=== PATIENT | female | born 1990 | race Caucasian/White ===

== ENCOUNTER 2022-04-01 20:39 | Emergency (ER) | payer OTHER, SELFPAY ==
[2022-04-01 20:54] VITALS: BP 119/69; BP 121/78; PULSE 70; PULSE 78; RESP 18; TEMP 36.7; O2SAT 98; BMI 22.3
--- NOTE | 2022-04-01 21:09 | ED.BACK ---
HPI - Back Pain/Injury General Chief Complaint: Back Injury/Pain Stated Complaint: back pain, short of breath Time Seen by Provider: 04/01/22 20:58 History of Present Illness HPI Narrative: This 31-year-old female comes in reporting an episode of back discomfort the last about an hour. She states that she felt back pain in the lower back and it seemed to radiate bilaterally from there. She did not have any injury event or strenuous activity. This pain lasted about an hour and now has completely resolved. She arrived at the emergency department stating to her significant other that she is feeling much better. He decided to come in any way to have vital signs checked and see if there was any insight as to what happened to her. Related Data Home Medications Medication Instructions Recorded Confirmed No Known Home Medications 04/01/22 04/01/22 Allergies Allergy/AdvReac Type Severity Reaction Status Date / Time No Known Drug Allergies Allergy Verified 04/01/22 20:57 Review of Systems Status of ROS: Reports: 10 or more systems reviewed and unremarkable except as noted in History and below Narrative: Constitutional: No fevers, no weight gain or loss. Eyes: No discharge. No vision changes. HENT: No congestion, no sore throat, no ear pain. Cardiovascular: No chest pain, no palpitations. Respiratory: No shortness of breath, no wheezes, no cough. Gastrointestinal: No abdominal pain, no vomiting, no diarrhea. Genitourinary: No dysuria, no hematuria. Musculoskeletal: Normal range of motion. Episode of back pain as described above. Skin: No rashes, no pruritis. Neurological: No dizziness, weakness, sensory change, speech change. Endo/Heme/Allergies: No bruising or bleeding. No polydipsia. Pysch: no suicidality, no anxiety, no insomnia. All other systems reviewed and are negative. Exam Narrative: Exam Narrative: Constitutional: Well-developed, well-nourished, no acute distress. HEENT: Normocephalic, atraumatic. Neck: Normal range of motion. Nontender. Supple. Heart: Regular. No murmurs. Normal rate. Intact distal pulses. Lungs: Clear to auscultation. No chest discomfort. No wheezes, rhonchi, or rales. Abdomen: Normal bowel sounds. Nontender. No rebound tenderness. No flank pain when percussing over the kidneys. Genitalia: Deferred. Back: No midline tenderness. Normal range of motion. Extremities: Normal range of motion. No injury. Skin: Intact. No rash. Warm. No erythema or pallor. Neurologic: No altered sensation. No weakness. Alert and oriented. Psychiatric: No suicidality. No anxiety or depression. No insomnia. Nursing notes and vitals signs are reviewed. Const: Vital Signs, click to edit/add: Vital Signs - 24 hr 04/01/22 20:54 Temperature 98.0 F Pulse Rate [Right Pulse Oximeter] 78 Respiratory Rate 18 Blood Pressure [Ri ght Upper Arm] 119/69 Pulse Oximetry 98 Oxygen Delivery Me thod Room Air Course Vital Signs Vital signs: Initial Vital Signs Temperature 98.0 F 04/01/22 20:54 Temperature Source Temporal Artery Scan 04/01/22 20:54 Pulse Rate 78 04/01/22 20:54 Respiratory Rate 18 04/01/22 20:54 Blood Pressure 119/69 04/01/22 20:54 Blood Pressure Mean 85 04/01/22 20:54 Blood Pressure Position Sitting 04/01/22 20:54 Pulse Oximetry 98 04/01/22 20:54 Oxygen Delivery Method 04/01/22 20:54 Vital Signs Temperature 98.0 F 04/01/22 20:54 Pulse Rate 78 04/01/22 20:54 Respiratory Rate 18 04/01/22 20:54 Blood Pressure 119/69 04/01/22 20:54 Pulse Oximetry 98 04/01/22 20:54 Oxygen Delivery Method 04/01/22 20:54 Temperature 98.0 F 04/01/22 20:54 Pulse Rate 78 04/01/22 20:54 Respiratory Rate 18 04/01/22 20:54 Blood Pressure 119/69 04/01/22 20:54 Pulse Oximetry 98 04/01/22 20:54 Oxygen Delivery Method 04/01/22 20:54 MDM - Back Pain/Injury MDM Narrative Medical decision making narrative: This 31-year-old comes in reporting an episode of back pain that was not triggered by any strenuous activity or injury event. Her symptoms have now completely resolved. She arrives with normal vital signs and a normal exam. I did states some possible causes of pain like this but reassured her that the transient nature of it along with her normal exam currently does not trigger any significant concern. I advised her to use [id number] medicines as needed and directed and return if recurrent or worsening symptoms happen. Discharge Plan Discharge Clinical Impression: Lumbago Patient Disposition: Home, Self-Care Condition: Improved Additional Instructions: Take [id number] medications as needed and indicated. Follow up with MD or return if worsening. Prescriptions: No Action No Known Home Medications Stand Alone Forms: [facility] Info Instructions
[2022-04-01 21:30] VITALS: BP 121/78; PULSE 70; RESP 18; TEMP 36.7
== END 2022-04-01 21:37 | disposition home or self-care (01) ==
LOC: ED 21:38
PROVIDERS: Emergency Provider Emergency Medicine Emergency Medical Services
DX: M54.50 Low back pain, unspecified (principal)
CPT/HCPCS: 99282; 99283; 99284

== ENCOUNTER 2022-04-02 01:24 | Emergency (ER) | payer OTHER, SELFPAY ==
--- NOTE | 2022-04-02 01:31 | ED_ITS ---
HPI - General Adult General Time Seen by Provider: 01:32 Date Seen: 04/02/22 Chief complaint: Flank Pain Stated complaint: back pain Time Seen by Provider: 04/02/22 01:26 Source: patient, RN notes reviewed and old records reviewed Mode of arrival: ambulatory Limitations: no limitations History of Present Illness HPI narrative: is a very pleasant 31-year-old female with history of to her 4th child 2 months ago who comes to the emergency room with back pain. Patient notes the onset of low back pain that wraps around to her abdomen for the 2nd time this evening. She was actually here earlier and described 10/ sudden onset of pain that had dissipated by the time she had arrived here. Reassurance was given and she was discharged home. Unfortunately, she was awoken from sleep from the return of the pain. She describes the pain is in her low back but radiating superiorly. This wraps around to the lower front of her abdomen. It is not associated with nausea, vomiting, recent fever or change in stools. Patient states in the past she has had some blood when she wipes if she is constipated but she is not currently constipated and has not had that happen recently. She denies any recent illness. She denies any trauma. She does describe a family outing today in which she and her took the 4 kids to an indoor part. She notes that she was going down the slide bending over quite a bit but does not recall any injury. She denies that the pain radiates down her legs. She has no loss of bowel or bladder control. She has not noticed any blood in her urine nor does it hurt to urinate. Patient has not been sexually active since having her baby 2 months ago. She has not had a period since the of her child. Related Data Home Medications Medication Instructions Recorded Confirmed No Known Home Medications 04/01/22 04/01/22 Allergies Allergy/AdvReac Type Severity Reaction Status Date / Time No Known Drug Allergies Allergy Verified 04/02/22 02:00 Review of Systems Status of ROS: Reports: 10 or more systems reviewed and unremarkable except as noted in History and below Const: Denies: fever or chills ENMT: Denies: throat pain or difficulty swallowing Cardio: Denies: chest pain, swelling of feet/ankles, lightheadedness or shortness of breath with exertion Resp: Denies: shortness of breath or cough GI: Reports: abdominal pain and blood in stool (Occasionally with constipation); Denies: nausea, vomiting, heartburn, diarrhea or difficulty swallowing : Denies: painful urination, urinary frequency, urinary urgency, urinary incontinence or blood in urine Musculo: Reports: back pain; Denies: extremity pain Integ/Breast: Denies: rash Neuro: Denies: headache, numbness in extremities or weakness in extremities PFSH [facility] Medical History Asthma Surgical History H/O tubal ligation Social History Smoking Status: Never smoker Do you use any of these nicotine containing products: None Second hand tobacco smoke exposure: No How often do you have a drink containing alcohol: never How often do you have six or more drinks on one occasion: Never AUDIT-C Alcohol total score: 0 Non-prescribed substance use: denies use Exam Narrative: Exam Narrative: Alert and oriented. Seems somewhat fearful. present loving and supportive. Eyes are clear. Mentating normally. Head is atraumatic. Heart with a regular rate and rhythm Lungs are clear to auscultation. Abdomen is soft and nontender. Perhaps slight uncomfortable feeling over the right upper quadrant but I cannot say this with certain the was a positive Gregorio sign. No pulsating mass. No CVA tenderness with percussion. No pain with palpation down the thoracic or lumbar spine. Straight leg raise internal external rotation of the hips yield no tenderness. Lower extremities without any evidence of edema. No peritoneal signs. Const: Vital Signs, click to edit/add: Vital Signs - 24 hr 04/02/22 01:58 04/02/22 04:04 Temperature 97.9 F Pulse Rate [Right Pulse Oximeter] 79 81 Respiratory Rate 18 18 Blood Pressure [Ri ght Upper Arm] 115/78 118/81 Pulse Oximetry 99 99 Oxygen Delivery Me thod Room Air Room Air Documenting provider has reviewed patient's vital signs: yes Course Course Hospital Course: Differential diagnosis includes but is not limited to life-threatening illnesses including aortic pathology, volvulus, internal hernia incarceration, ureteral colic, muscular spasm. At this time will place an IV give 1 L of normal saline and check laboratory values to include a CBC, comprehensive panel, CRP, urinalysis, hCG, amylase, lipase. Based on urinalysis will likely proceed with CT of the abdomen and pelvis. Patient notes that her pain has decreased to a 3/10 at this time is starting to dissipate. Will hold off on any pain medications. Reevaluation(s) Reevaluation #1: Noted on CT was a very full bladder. We did a bedside bladder ultrasound that showed 300 mils. Patient was able to urinate 300 mils without difficulty. Urine was strain but no evidence of stone. Patient informed that she did have stones in the kidney but none noted within the ureteral system. Of note however is elevated LFTs and therefore will do a right upper quadrant ultrasound. Patient remains pain-free Reevaluation #2: Pain return for this patient and thus she is given Toradol 15 mg IV. Vital Signs Vital signs: Initial Vital Signs Temperature 97.9 F 04/02/22 01:58 Temperature Source Temporal Artery Scan 04/02/22 01:58 Pulse Rate 79 04/02/22 01:58 Respiratory Rate 18 04/02/22 01:58 Blood Pressure 115/78 04/02/22 01:58 Blood Pressure Mean 90 04/02/22 01:58 Blood Pressure Position Sitting 04/02/22 01:58 Pulse Oximetry 99 04/02/22 01:58 Oxygen Delivery Method 04/02/22 01:58 Vital Signs Temperature 97.9 F 04/02/22 01:58 Pulse Rate 79 04/02/22 01:58 Respiratory Rate 18 04/02/22 01:58 Blood Pressure 115/78 04/02/22 01:58 Pulse Oximetry 99 04/02/22 01:58 Oxygen Delivery Method 04/02/22 01:58 Temperature 97.9 F 04/02/22 01:58 Pulse Rate 81 04/02/22 04:04 Respiratory Rate 18 04/02/22 04:04 Blood Pressure 118/81 04/02/22 04:04 Pulse Oximetry 99 04/02/22 04:04 Oxygen Delivery Method 04/02/22 04:04 Medical Decision Making MDM Narrative Medical decision making narrative: 1. Abdominal pain-patient has elevated liver function tests but normal bilirubin. Mild right upper quadrant pain with palpation but no obvious Gregorio sign. However, ultrasound shows multiple small stones. No evidence of pericholecystic fluid. At this time patient has been pain-free since given Toradol in the emergency room. I had the pleasure of speaking with our surgical elastic knitter Dr. Graciela Jimenez. At this time patient will be discharged home and will follow-up in clinic tomorrow FridayApril 03. At that time will have LFTs rechecked. Fortunately no evidence of leukocytosis and CRP is within normal limits. Will ask patient to use ibuprofen as needed for discomfort. She may add [place] sparingly as needed for pain. She is breast-feeding and may continue to do so. 2. Urinary retention-patient states that she was unable to urinate. However, on CT it was noted that her bladder was somewhat distended. We did do a bladder ultrasound which showed 300 mils. Patient was able to then urinate that very same amount. 3. Nephrolithiasis-patient did have kidney stones in the right kidney but no evidence of ureteral stones hydronephrosis. 4. Constipation-patient did have increased stool burden. Will have her use MiraLax twice daily especially since she will be on a narcotic for pain control. 2. Disposition -home with her . She is instructed to return to the emergency room for worsening symptoms especially fever, vomiting, increasing abdominal pain. She will stick to a low flat diet. Medical Records Medical records reviewed: Yes I reviewed the patient's medical records Lab Data Lab results reviewed: Yes I reviewed the patient's lab results Labs: Lab Results 04/02/22 04/02/22 04/02/22 Range/Units 01:50 01:50 01:50 WBC 7.90 (4.50-11.00) K/uL RBC 4.93 (4.00-5.20) m/uL Hgb 13.3 (12.0-16.0) gm/dL Hct 41.1 (33.0-51.0) % MCV 83 (80-100) fL MCH 27 (26-34) pg MCHC 32 (32-36) gm/dL RDW Coeff of [place] 14.8 (11.5-15.5) % Plt Count 279 (140-440) K/uL Neut % (Auto) 65.2 (42.0-72.0) % Lymph % (Auto) 28.2 (20-44) % [place] % (Auto) 5.2 (0.0-11.0) % Eos % (Auto) 0.6 (0.0-7.0) % Baso % (Auto) 0.3 (0.0-3.0) % Neut # (Auto) 5.15 (1.7-7.0) K/uL Lymph # (Auto) 2.23 (0.90-2.90) K/uL [place] # (Auto) 0.40 (0.00-0.90) K/UL Eos # (Auto) 0.05 (0.00-0.50) K/uL Baso # (Auto) 0.02 (0.00-0.30) K/uL Abs Immat Gran (auto) 0.04 (0.00-0.30) K/uL Imm/Tot Granulo (auto) 0.5 % Sodium 140 (135-149) mmol/L Potassium 3.8 (3.6-5.1) mmol/L Chloride 103 (96-114) mmol/L Carbon Dioxide 27 (20-32) mmol/L BUN 24 (5-24) mg/dL Creatinine 0.8 (0.5-1.5) mg/dL Estimated Creat Clear 111.45 Estimated GFR 102 ml/min Glucose 113 (60-115) mg/dL Calcium 9.3 (8.4-10.6) mg/dL Total Bilirubin 1.0 (0.1-1.5) mg/dL AST 712 H (12-35) U/L ALT 343 H (4-35) U/L Alkaline Phosphatase 126 (40-150) U/L C-Reactive Protein < 0.5 L (0.5-1.0) mg/dL Total Protein 7.8 (6.0-8.3) g/dL Albumin 5.0 (3.3-5.0) g/dL Amylase 85 (18-89) U/L Lipase 220 (23-300) U/L HCG, Qual Negative (Negative) Urine Color (Yellow) Urine Appearance (Clear) Urine pH (5.0-8.5) Ur Specific [place] (1.000-1.030) Urine Protein (Negative) Urine Glucose (UA) (Negative) Urine Ketones (Negative) Urine Blood (Negative) Urine Nitrite (Negative) Urine Bilirubin (Negative) Urine Urobilinogen (0.2-1.0) Ur Leukocyte Esterase (Negative) Urine RBC (0-2) Urine WBC (0-5) Ur Squamous Epith Cells (None-Few) Urine Bacteria (None) Urine Mucus (None) Ethyl Alcohol < 0.01 L (0.01-0.03) % SARS-CoV-2 (PCR) (Negative) 04/02/22 04/02/22 Range/Units 03:20 05:37 WBC (4.50-11.00) K/uL RBC (4.00-5.20) m/uL Hgb (12.0-16.0) gm/dL Hct (33.0-51.0) % MCV (80-100) fL MCH (26-34) pg MCHC (32-36) gm/dL RDW Coeff of Layo (11.5-15.5) % Plt Count (140-440) K/uL Neut % (Auto) (42.0-72.0) % Lymph % (Auto) (20-44) % [place] % (Auto) (0.0-11.0) % Eos % (Auto) (0.0-7.0) % Baso % (Auto) (0.0-3.0) % Neut # (Auto) (1.7-7.0) K/uL Lymph # (Auto) (0.90-2.90) K/uL [place] # (Auto) (0.00-0.90) K/UL Eos # (Auto) (0.00-0.50) K/uL Baso # (Auto) (0.00-0.30) K/uL Abs Immat Gran (auto) (0.00-0.30) K/uL Imm/Tot Granulo (auto) % Sodium (135-149) mmol/L Potassium (3.6-5.1) mmol/L Chloride (96-114) mmol/L Carbon Dioxide (20-32) mmol/L BUN (5-24) mg/dL Creatinine (0.5-1.5) mg/dL Estimated Creat Clear Estimated GFR ml/min Glucose (60-115) mg/dL Calcium (8.4-10.6) mg/dL Total Bilirubin (0.1-1.5) mg/dL AST (12-35) U/L ALT (4-35) U/L Alkaline Phosphatase (40-150) U/L C-Reactive Protein (0.5-1.0) mg/dL Total Protein (6.0-8.3) g/dL Albumin (3.3-5.0) g/dL Amylase (18-89) U/L Lipase (23-300) U/L HCG, Qual (Negative) Urine Color Yellow (Yellow) Urine Appearance Clear (Clear) Urine pH 7.0 (5.0-8.5) Ur Specific [place] 1.015 (1.000-1.030) Urine Protein Negative (Negative) Urine Glucose (UA) Negative (Negative) Urine Ketones Negative (Negative) Urine Blood Negative (Negative) Urine Nitrite Negative (Negative) Urine Bilirubin Negative (Negative) Urine Urobilinogen 0.2 (0.2-1.0) Ur Leukocyte Esterase Trace A (Negative) Urine RBC 0-2 (0-2) Urine WBC 2-5 (0-5) Ur Squamous Epith Cells Moderate A (None-Few) Urine Bacteria Few A (None) Urine Mucus Moderate A (None) Ethyl Alcohol (0.01-0.03) % SARS-CoV-2 (PCR) Negative SARS-CoV-2 (Negative) Imaging Data CT scan - abdomen: Attestation: I have reviewed the pertinent imaging results. My impression: Full bladder. Large amount of stool. Nephrolithiasis. I do not see obstructing stone in the ureters. Radiologist's impression: Lower chest: A 3 mm nodule seen in the left lateral costophrenic sulcus. Liver: Unremarkable. Spleen: Unremarkable. Pancreas: Unremarkable. Gallbladder: Unremarkable. Kidney: There is a cluster of several stones present in the lower pole of the right kidney. No ureteral calculi or obstruction is seen. Adrenal: Unremarkable. Bowel: Moderate amount of stool is present throughout the colon which may be due to chronic constipation. The appendix is normal in appearance and size. It is best appreciated on coronal images. Vascular: Unremarkable. Lymph: Unremarkable. Peritoneum: Unremarkable. No pneumoperitoneum is seen. No significant ascites is noted. Pelvis: Unremarkable. Soft tissue: Unremarkable. Bone: Bilateral chronic pars defects of L5 noted with mild anterolisthesis of L5-S1 noted. IMPRESSION: 1. No CT correlate for the patient`s symptoms seen. US - abdomen: Attestation: I have reviewed the pertinent imaging results. Radiologist's impression: Liver: The liver parenchyma is normal in echotexture. Gallbladder: Numerous small echogenic gallstones are seen within the gallbladder. The gallbladder wall is normal in appearance. No pericholecystic fluid is present. No sonographic Gregorio?s sign is present. Common bile duct: 6 mm. No intrahepatic biliary ductal dilatation seen. Pancreas: The visualized portions of the pancreatic head and body are normal in appearance. Right Kidney: 10.5 cm. Small echogenic foci are noted in the lower pole of the right kidney, consistent with stones seen on recent CT. No hydronephrosis or ureterectasis is seen. Vascular: The visualized abdominal aorta and IVC are unremarkable. IMPRESSION: 1. Numerous small echogenic gallstones are seen within the gallbladder. Discharge Plan Discharge Clinical Impression: Abdominal pain, Cholelithiasis Patient Disposition: Home, Self-Care Condition: Improved Additional Instructions: Low-fat diet. Ibuprofen may be used for pain. For pain not relieved by ibuprofen [place] also known as Vicodin or hydrocodone/Tylenol may be used sparingly. [place] through [employer] I would suggest the use of MiraLax 1 cap twice a day to help improve through put of stool. Expect a phone call from the clinic to set you up with an appointment with our surgeon Dr. Graciela Jimenez for tomorrow, FridayApril 03. At that time will recheck your liver function tests. If you do not hear from them, call them at [phone] Return to the emergency room for onset of fever, worsening symptoms and as needed. Prescriptions: No Action No Known Home Medications Follow Up/Referrals: Provider,Not a Local [Primary Care Provider] - Stand Alone Forms: [employer] Info Instructions
[2022-04-02] MEDS: 0.9 % SODIUM CHLORIDE 1000 ml 1,000 ML IV (01:50)
[2022-04-02 01:58] VITALS: BP 115/78; PULSE 79; RESP 18; TEMP 36.6; O2SAT 99; BMI 21.5
[2022-04-02 02:01] LABS: Basophils Absolute Auto 0.02 K/uL (0.00-0.30); Basophils Percent Auto 0.3 % (0.0-3.0); Eosinophils Absolute Auto 0.05 K/uL (0.00-0.50); Eosinophils Percent Auto 0.6 % (0.0-7.0); Hematocrit 41.1 % (33.0-51.0); Hemoglobin* 13.3 gm/dL (12.0-16.0); Immature Granulocytes Abs Auto 0.04 K/uL (0.00-0.30); Immature Granulocytes Pct Auto 0.5 %; Lymphocytes Absolute Auto 2.23 K/uL (0.90-2.90); Lymphocytes Percent Auto 28.2 % (20-44); Mean Corpuscular HGB Conc 32 gm/dL (32-36); Mean Corpuscular Hemoglobin 27 pg (26-34); Mean Corpuscular Volume 83 fL (80-100); Monocytes Percent Auto 5.2 % (0.0-11.0); Neutrophils Absolute Auto 5.15 K/uL (1.7-7.0); Neutrophils Percent Auto 65.2 % (42.0-72.0); Platelet Count* 279 K/uL (140-440); RDW Coefficient of Variation % 14.8 % (11.5-15.5); Red Blood Count 4.93 m/uL (4.00-5.20)
[2022-04-02 02:07] LABS: Slide Review Reflex No
[2022-04-02 02:14] LABS: Chloride* 103 mmol/L (96-114); HCG Qualitative Serum* Negative (Negative)
[2022-04-02 02:15] LABS: Potassium* 3.8 mmol/L (3.6-5.1); Sodium* 140 mmol/L (135-149)
[2022-04-02 02:17] LABS: Amylase* 85 U/L (18-89); Creatinine* 0.8 mg/dL (0.5-1.5); Est. Creatinine Clearance* 111.45; Estimated Glomerular Filt Rate 102 ml/min
[2022-04-02 02:18] LABS: Alanine Aminotransferase* 343 U/L (4-35); Alkaline Phosphatase* 126 U/L (40-150); Aspartate Amino Transferase* 712 U/L (12-35); Blood Urea Nitrogen* 24 mg/dL (5-24); Calcium* 9.3 mg/dL (8.4-10.6); Carbon Dioxide* 27 mmol/L (20-32); Glucose* 113 mg/dL (60-115); Lipase* 220 U/L (23-300); Total Protein* 7.8 g/dL (6.0-8.3)
[2022-04-02 02:23] LABS: C Reactive Protein* < 0.5 mg/dL (0.5-1.0)
--- NOTE | 2022-04-02 02:24 | CRLHL7_ITS ---
For Patients: As a result of the Century Cures Act, medical imaging exams and procedure reports are released immediately into your electronic medical record. You may view this report before your referring provider. If you have questions, please contact your health care provider. INDICATION: Bilateral flank pain TECHNIQUE: CT Abdomen and pelvis without i.v. contrast. Coronal and sagittal reformats were obtained. COMPARISON: None FINDINGS: Lower chest: A 3 mm nodule seen in the left lateral costophrenic sulcus. Liver: Unremarkable. Spleen: Unremarkable. Pancreas: Unremarkable. Gallbladder: Unremarkable. Kidney: There is a cluster of several stones present in the lower pole of the right kidney. No ureteral calculi or obstruction is seen. Adrenal: Unremarkable. Bowel: Moderate amount of stool is present throughout the colon which may be due to chronic constipation. The appendix is normal in appearance and size. It is best appreciated on coronal images. Vascular: Unremarkable. Lymph: Unremarkable. Peritoneum: Unremarkable. No pneumoperitoneum is seen. No significant ascites is noted. Pelvis: Unremarkable. Soft tissue: Unremarkable. Bone: Bilateral chronic pars defects of L5 noted with mild anterolisthesis of L5-S1 noted. IMPRESSION: 1. No CT correlate for the patient`s symptoms seen. Dictated by Mati Hammer MD @ 04/02/2022 2:49:36 AM Please note that all CT scans at this facility use dose modulation, iterative reconstruction, and/or weight-based dosing when appropriate to reduce radiation dose to as low as reasonably achievable. Dictated by: Mati Hammer MD @ 04/02/2022 02:49:41 (Electronically Signed)
--- NOTE | 2022-04-02 03:12 | CRLHL7_ITS ---
For Patients: As a result of the Cures Act, medical imaging exams and procedure reports are released immediately into your electronic medical record. You may view this report before your referring provider. If you have questions, please contact your health care provider. INDICATION: Elevated liver function tests TECHNIQUE: Ultrasound abdomen limited. Sonographic images of the right upper quadrant were obtained using munguia-scale and color Doppler images. COMPARISON: CT 04/02/2022 FINDINGS: Liver: The liver parenchyma is normal in echotexture. Gallbladder: Numerous small echogenic gallstones are seen within the gallbladder. The gallbladder wall is normal in appearance. No pericholecystic fluid is present. No sonographic Gregorio???s sign is present. Common bile duct: 6 mm. No intrahepatic biliary ductal dilatation seen. Pancreas: The visualized portions of the pancreatic head and body are normal in appearance. Right Kidney: 10.5 cm. Small echogenic foci are noted in the lower pole of the right kidney, consistent with stones seen on recent CT. No hydronephrosis or ureterectasis is seen. Vascular: The visualized abdominal aorta and IVC are unremarkable. IMPRESSION: 1. Numerous small echogenic gallstones are seen within the gallbladder. Dictated by Mati Hammer MD @ 04/02/2022 4:28:52 AM Dictated by: Mati Hammer MD @ 04/02/2022 04:28:57 (Electronically Signed)
--- NOTE | 2022-04-02 03:30 | ED.NURSE ---
strained urine of 300cc, no stone observed.
[2022-04-02 03:33] LABS: Appearance Urine Clear (Clear); Bilirubin Urine Negative (Negative); Blood Urine Negative (Negative); Color Urine Yellow (Yellow); Glucose Urine Negative (Negative); Ketones Urine Negative (Negative); Leukocyte Esterase Urine Trace (Negative); Nitrite Urine Negative (Negative); Protein Urine Negative (Negative); Specific Gravity Urine 1.015 (1.000-1.030); Urobilinogen Urine 0.2 (0.2-1.0)
[2022-04-02 03:46] LABS: Bacteria Urine Few; Mucus Urine Moderate; RBC Urine 0-2 (0-2); Squamous Epithelial Cell Urine Moderate (None-Few)
[2022-04-02] MEDS: KETOROLAC 15 MG/ML inj IVP (03:59)
[2022-04-02 04:04] VITALS: BP 118/81; PULSE 81; RESP 18; O2SAT 99
[2022-04-02 05:16] LABS: Ethanol* < 0.01 % (0.01-0.03)
[2022-04-02 06:08] LABS: SARS PCR* Negative SARS-CoV-2 (Negative)
[2022-04-02 06:20] VITALS: BP 114/78; PULSE 79; RESP 18; TEMP 36.9; O2SAT 99
[2022-04-02 06:22] VITALS: BP 114/78; PULSE 79; RESP 18; TEMP 36.9
== END 2022-04-02 06:24 | disposition home or self-care (01) ==
PROVIDERS: Emergency Provider Family Medicine
DX: K80.20 Calculus of gallbladder without cholecystitis without obstruction (principal)
CPT/HCPCS: 36415; 51798; 74176; 76705; 80053; 81001; 81025; 82077; 82150; 83690; 84703; 85025; 86140; 87086; 87635; 96361; 96374; 99284; J1885; J7030

== ENCOUNTER 2022-04-03 13:40 | Outpatient (CLI) | payer OTHER, SELFPAY ==
--- OUTSIDE RECORDS SUMMARY | 2022-04-03 13:59 | XMS_ITS | Encounter Summary ---
:1990 Author Organization [facility] Address [address] [place] [address] Care Team Providers Name Role Phone Unavailable Primary Care Provider Unavailable Encounter Details Date Type Department Care Team Description [facility]30[facility]2004 [facility] Lyssa [address] [place], [place] [address] (Wo rk) Social History Tobacco Use Types Packs/Day Years Used Date Smoking Tobacco: Never Assessed Sex Assigned at Date Recorded Not on file documented as of this encounter Plan of Treatment Not on filedocumented as of this encounter Procedures Procedure Name Priority Date/Time Associated Diagnosis Comme [facility] X-RAY TIBIA & Routine 12/30/2004 5:55 PM Resul ts for this FIBULA 2 VIEWS CDT procedure are in the results section. documented in this encounter Results X-RAY LOWER LEG (12/30/2004 5:55 PM CDT) Anatomical Region Laterality Modality Other Specimen (Source) Anatomical Collection Method Collection Time Re ceived Time Location / / Volume Laterality 12/30/2004 5:55 PM CDT Impressions 12/31/2004 10:37 AM CDT TWO VIEW LEFT TIBIA/FIBULA ? CLINICAL HISTORY: ??Contusion. ?? FINDINGS: ??Negative. Octavio Griffith MD GENERAL IMAGING documented in this encounter Visit Diagnoses Not on filedocumented in this encounter
--- OUTSIDE RECORDS SUMMARY | 2022-04-03 13:59 | XMS_ITS | Encounter Summary ---
:1990 Author Organization [place] Address [facility] [place] [address] Care Team Providers Name Role Phone Clinic, [facility] Primary Care Provider [phone] Jam Drew PA-C Unavailable [phone] Jam Drew PA-C Unavailable [phone] Reason for Visit Reason Comments Dizziness Encounter Details Date Type Department Care Team Description 01/10/2018 Emergency [facility] Guadalupe goldsmith, Manuel Pool MD Near syncope Emergency Dept [facility] [address] [facility] [address] [place] [address] [place] [address] (Wo rk) Social History Tobacco Use Types Packs/Day Years Used Date Smoking Tobacco: Never Smokeless Tobacco: Never Alcohol Use Standard Drinks/Week Comments Yes 0 (1 standard drink = 0.6 oz pure alcoho l) occasional Sex Assigned at Date Recorded Not on file documented as of this encounter Last Filed Vital Signs Vital Sign Reading Time Taken Comments Blood Pressure 109/68 01/10/2018 5:00 PM CDT Pulse - - Temperature 36.7 ??C (98 ??F) 01/10/2018 3:32 PM CDT Respiratory Rate 16 01/10/2018 3:32 PM CDT Oxygen Saturation 91% 01/10/2018 4:30 PM CDT Inhaled Oxygen Concentration - - Weight 63 kg (139 lb) 01/10/2018 3:32 PM CDT Height 175.3 cm (5' 9) 01/10/2018 3:32 PM CDT Body Mass Index 20.53 01/10/2018 3:32 PM CDT documented in this encounter Discharge Instructions Discharge InstructionsManuel Casas MD - 01/10/2018 5:08 PM CDT Discharge Instructions Syncope Syncope (fainting) is a sudden, short loss of consciousness (passing out spell). People will usuallyfall to the ground when they faint or slump over if seated. People may also shake when this happens,and it can sometimes be difficult to tell the difference between syncope and a seizure. At this time, your provider does not find a reason to suspect that your fainting spell is a sign of anything dangerous or life-threatening. However, sometimes the signs of serious illness do not show up right away. Generally, every Emergency Department visit should have a follow-up clinic visit with either a primary or a specialty clinic/provider. Please follow-up as instructed by your emergency provider today. Return to the Emergency Department if: ??? You faint again. ??? You have any significant bleeding. ??? You have chest pain or a fast or irregular heartbeat. ??? You feel short of breath. ??? You cough up any blood. ??? You have abdominal (belly) pain or unusual back pain. ??? You have ongoing vomiting (throwing up) or diarrhea (loose stools). ??? You have a black or tarry bowel movement, or blood in the stool or in your vomit. ??? You have a fever over 101??F. ??? You lose feeling or cannot move a part of your body or cannot talk normally. ??? You are confused, have a headache, cannot see well, or have a seizure. ??? DO NOT DRIVE. CALL 911 INSTEAD! What can I do to help myself? Follow any specific instructions that your provider discussed with you. ??? If you feel light-headed, make sure to sit down right away, even if you have to sit on the floor. ??? Follow up with your regular medical provider as discussed for further management. This may include lowering your blood pressure medications, insulin or other diabetic medications, checking your blood sugar more frequently, and drinking more fluids, taking medicines for vomiting or diarrhea or getting up slower. If you were given a prescription for medicine here today, be sure to read all of the information (including the package insert) that comes with your prescription. This will include important information about the medicine, its side effects, and any warnings that you need to know about. The pharmacist who fills the prescription can provide more information and answer questions you may have about the medicine. If you have questions or concerns that the pharmacist cannot address, please call or return to the Emergency Department. Remember that you can always come back to the Emergency Department if you are not able to see your regular provider in the amount of time listed above, if you get any new symptoms, or if there is anything that worries you. documented in this encounter Medications at Time of Discharge Medication Sig Dispensed Refills Start Date End Date drospirenone-ethinyl Take 1 tablet by mouth 0 08/2016 estradiol (OCELLA) 3-0.03 MG per tablet ibuprofen (ADVIL,MOTRIN) Take 2 tablets by 40 tablet 0 03/20 400-800 mg mouth every 8 hours as tabletIndications: needed (cramping). Vaginal delivery documented as of this encounter ED Notes Kisha Jacobs RN - 01/10/2018 4:33 PM CDT Patient reports she is feeling better, that the symptoms she felt at the soccer game are resolved, but that she does not feel completely back to normal. She is unable to describe what feels different. She is talking with family who are in the room with her. Kisha Jacobs RN - 01/10/2018 4:15 PM CDT Venipuncture for ISTAT labs done. Opal Mirza RN - 01/10/2018 3:34 PM CDT A&Ox4. ABC's intact. Pt c/o dizziness and nausea while outside today at a soccer game. Seen by EMS and was told to come in to be checked out. Denies pain. No recent illness. Manuel Casas MD - 01/10/2018 3:29 PM CDT History Chief Complaint: Near-Syncopal Episode The history is provided by the patient. Talya Lyle is a 27 year old female who presents via EMS for evaluation of a near-syncopal episode. The patient reports that she was walking up a hill with her children after watching a soccer gamewhen she began to feel nauseous, disoriented, and out of it. At this time the patient reports feeling somewhat dizzy and clammy and experiencing tunnel vision. A friend reports that the patient looked very pale at this time. She then sat down on a park bench and a stranger called EMS who presented the patient to the emergency department today. She reports that GLC en route was normal and that EMS told her she had a benign blockage in her heart. Patient states that she experienced orthostatic hypo tension at this time as well. Of note, the patient did miss lunch today. On presentation, the patient states that she feels well outside of feeling that she would like to take a nap. Not sure of LKM asshe is on control. Patient denies pain on presentation or other complaint. Allergies: No known drug allergies Medications: Estradiol Past Medical History: The patient does not have any past pertinent medical history. Past Surgical History: History reviewed. No pertinent surgical history. Family History: Diabetes Social History: Presents with family Tobacco use: Never smoker Alcohol use: Yes (occ) PCP: [facility] [place] Marital Status: Review of Systems Gastrointestinal: Positive for nausea (resolved). Neurological: Positive for dizziness (resolved) and syncope (near). All other systems reviewed and are negative. Physical Exam Patient Vitals for the past 24 hrs: BP Temp Temp src Heart Rate Resp SpO2 Height Weight 01/10/18 1700 109/68 - - - - - - - 01/10/18 1645 105/66 - - - - - - - 01/10/18 1630 111/71 - - 72 - 91 % - - 01/10/18 1616 97/64 - - 87 - 93 % - - 01/10/18 1532 101/64 98 ??F (36.7 ??C) Temporal 82 16 99 % 1.753 m (5' 9) 63 kg (139 lb) Physical Exam Constitutional: Alert, attentive HENT: Nose: Nose normal. Mouth/Throat: Oropharynx is clear, mucous membranes are moist Eyes: EOM are normal. CV: regular rate and rhythm; no murmurs, rubs or gallups Chest: Effort normal and breath sounds normal. GI: There is no tenderness. No distension. Normal bowel sounds MSK: Normal range of motion. Neurological: Alert, attentive Skin: Skin is warm and dry. Emergency Department Course ECG (16:31:54): Rate 72 bpm. MN interval 108. QRS duration 108. QT/QTc 394/431. P-R-T axes 34 53 22. Sinus rhythm with short MN. Incomplete right bundle branch block. Borderline ECG. Agree with computer interpretation. No old EKG for comparison. Interpreted at 1632 by Manuel Casas MD. Laboratory: 1631: ISTAT Basic Met POCT: AWNL (Creatinine 0.7) ISTAT HCG Quantitative: <5.0 Emergency Department Course: Past medical records, nursing notes, and vitals reviewed. 1548: I performed an exam of the patient and obtained history, as documented above. The patient provided a urine sample here in the emergency department. This was sent for laboratory testing, findings above. EKG was taken here in the ED, results as above. 1708: I rechecked the patient. Findings and plan explained to the Patient. Patient discharged home with instructions regarding supportive care, medications, and reasons to return. The importance of close follow-up was reviewed. Impression & Plan Medical Decision Making: Talya Lyle is a well-appearing 27 year old female who presents for evaluation after near syncopal episode. She describes a very clear vasovagal episode preceding the symptoms. She did miss lunch. Screening labs show no anemia, electrolyte abnormality, or evidence of . EKG shows incomplete right bundle branch block but no other concerning findings; there is shortened MN but no delta wave. She is PERC negative, essentially ruling out PE. On recheck she is feeling entirely better. I recommended primary care follow-up in 3-5 days and strict return precautions for dizziness, chest pain, shortness of breath, or any other concerns. Diagnosis: ICD-10-CM 1. Near syncope R55 Disposition: Discharged to home with plan as outlined. Scribe Disclosure: I, Dewey Villalobos, am serving as a scribe at 4:45 PM on 01/10/2018 to document services personally performed by Manuel Casas M 0 based on my observations and the provider's statements to me. 12/09/2017 EMERGENCY DEPARTMENT Manuel Casas MD 01/10/18 2200 documented in this encounter Plan of Treatment Not on filedocumented as of this encounter Procedures Procedure Name Priority Date/Time Associated Comments Diagnosis EKG 12-LEAD, TRACING STAT 01/10/2018 4:31 PM R esults for this ONLY CDT procedure are i n the results section. ISTAT HCG Routine 01/10/2018 4:30 PM Results f or this QUANTITATIVE CDT procedure are i n POCT the results section. ISTAT BASIC CHEM ICA Routine 01/10/2018 4:28 PM R esults for this HEMATOCRIT POCT CDT procedure ar e in the results section. documented in this encounter Results EKG 12 lead (01/10/2018 4:31 PM CDT) Patholo gist Method Time Signature Interpretation ECG Click View RADIOLOGY Image link RESULTS to view waveform and result Specimen (Source) Anatomical Collection Method Collection Time Re ceived Time Location / / Volume Laterality 01/10/2018 4:31 PM CDT Manuel Casas MD ECG ORDERABLES Performing Organization Address City/State/ZIP Code Phon e Number RADIOLOGY RESULTS ISTAT HCG Quantitative POCT (01/10/2018 4:30 PM CDT) P athologist Signature HCG Quantitative <5.0 <5.0 IU/L 01/10/2018 POINT OF CAR E Serum 4:43 PM CDT TEST, HANDHELD METER Specimen Anatomical Collection Method Collection Time Receive d Time (Source) Location / / Volume Laterality 01/10/2018 4:30 PM 8 4:43 CDT PM CDT Manuel Casas MD LAB - [facility] POCT Performing Organization Address City/State/ZIP Code Phon e Number FV POINT OF CARE TEST, HANDHELD METER POINT OF CARE TEST, HANDHELD METER ISTAT Basic Met ICa HCT POCT (01/10/2018 4:28 PM CDT) P athologist Signature Sodium 139 133 - 144 01/10/2018 POINT OF CARE mmol/L 4:31 PM CDT TEST, HANDHELD METER Potassium 3.9 3.4 - 5.3 01/10/2018 POINT OF CARE mmol/L 4:31 PM CDT TEST, HANDHELD METER Chloride 104 94 - 109 01/10/2018 POINT OF CARE mmol/L 4:31 PM CDT TEST, HANDHELD METER Total CO2 21 20 - 32 01/10/2018 POINT OF CARE mmol/L 4:31 PM CDT TEST, HANDHELD METER Anion Gap 14 6 - 17 01/10/2018 POINT OF CARE mmol/L 4:31 PM CDT TEST, HANDHELD METER Glucose 95 70 - 99 01/10/2018 POINT OF CARE mg/dL 4:31 PM CDT TEST, HANDHELD METER Urea Nitrogen 12 5 - 24 01/10/2018 POINT OF CARE mg/dL 4:31 PM CDT TEST, HANDHELD METER Creatinine 0.7 0.52 - 01/10/2018 POINT OF CARE 1.04 mg/dL 4:31 PM CDT TEST, HANDHELD METER GFR Estimate >90 >60 01/10/2018 POINT OF CARE mL/min/1.7 4:31 PM CDT TEST, HANDHELD m2 METER GFR Estimate If >90 >60 01/10/2018 POINT OF CARE Black mL/min/1.7 4:31 PM CDT TEST, HANDHELD m2 METER Calcium Ionized 4.5 4.4 - 5.2 01/10/2018 POINT OF CARE mg/dL 4:31 PM CDT TEST, HANDHELD METER Hemoglobin 12.9 11.7 - 01/10/2018 POINT OF CARE 15.7 g/dL 4:31 PM CDT TEST, HANDHELD METER Hematocrit - 38 35.0 - 01/10/2018 POINT OF CARE POCT 47.0 %PCV 4:31 PM CDT TEST, HANDHELD METER Specimen Anatomical Collection Method Collection Time Receive d Time (Source) Location / / Volume Laterality 01/10/2018 4:28 PM 8 4:31 CDT PM CDT [facility] Performing Organization Address City/State/ZIP Code Phon e Number FV POINT OF CARE TEST, HANDHELD METER POINT OF CARE TEST, HANDHELD METER documented in this encounter Visit Diagnoses Diagnosis Near syncope Syncope and collapse documented in this encounter Care Teams Structural Metal Worker Relationship Specialty Start Date End Date [facility], [facility] PCP - General 08/05/[address] [place] [address] Jam Drew PA-C PCP - Assigned PCP 07/24/17 07/21/18 [address] [place], [place] [id number] Jam Drew PA-C Assigned PCP 07/24/17 08/06/20 [address] [place], [place] [id number] documented as of this encounter
--- OUTSIDE RECORDS SUMMARY | 2022-04-03 13:59 | XMS_ITS | Encounter Summary ---
:1990 Author Organization [place] Address [address] [place] [address] Care Team Providers Name Role Phone Unavailable Primary Care Provider Unavailable Reason for Visit Reason Comments Urgent Care Eye Problem Swollen L upper eyelid x3 da ys Encounter Details Date Type Department Care Team Description 09/21/2016 Office Visit [facility] Darcy Baltazar m externum of Urgent Care Naomie Daniel MD left upper eyelid [address] (Primary Dx) [place] [address] [phone] Social History Tobacco Use Types Packs/Day Years Used Date Smoking Tobacco: Never Alcohol Use Standard Drinks/Week Comments No 0 (1 standard drink = 0.6 oz pure alcoho l) Sex Assigned at Date Recorded Not on file documented as of this encounter Last Filed Vital Signs Vital Sign Reading Time Taken Comments Blood Pressure 98/56 09/21/2016 8:34 AM CDT Pulse 77 09/21/2016 8:34 AM CDT Temperature 36.8 ??C (98.3 ??F) 09/21/2016 8:34 AM CDT Respiratory Rate - - Oxygen Saturation 96% 09/21/2016 8:34 AM CDT Inhaled Oxygen Concentration - - Weight - - Height - - Body Mass Index - - documented in this encounter Patient Instructions Patient InstructionsDarcy Baltazar MD - 09/21/2016 8:42 AM CDT Images from the original note were not included. Sty (or Stye) A sty is an infection of the oil gland of the eyelid. It may develop into a small pocket of pus (abscess). This can cause??pain, redness, and swelling. In early stages, styes are treated with antibiotic cream, eye drops, or warm??packs (small towels soaked in warm??water). More severe cases may need to be opened and drained by a health care provider. Home care ?? Eye drops or ointment are usually prescribed to treat the infection. Use these as directed.? Artificial tears may also be used to lubricate the eye and make it more comfortable. These may bepurchased without a prescription.? Talk to your health care provider before using any [id number] treatment for a sty. ?? Apply a warm, damp??towel to the affected??eye for at least 5 minutes, 3 to 4 times a day for a week. Warm compresses open the pores and speed the healing. If the compresses are too hot, they may burn your eyelid. ?? Sometimes the sty will drain with this treatment alone. If this happens, continue the antibiotic until all the redness and swelling are gone. ?? Wash your hands??before and after??touching the infected eye to avoid spreading the infection. ?? Do not squeeze or try to puncture the sty. Follow-up care Follow up with your health care provider, or as advised.?? When to seek medical advice Call your health care provider right away if you have: ?? Increase in swelling or redness around the eyelid after 48 to 72 hours ?? Increase in eye pain or the eyelid blisters ?? Increase in warmth--the eyelid feels hot ?? Drainage of blood or thick pus from the sty ?? Blister on the eyelid ?? Inability to open the eyelid due to swelling ?? Fever ?? 1 degree above your normal temperature lasting for 24 to 48 hours, or ?? Whatever your health care provider told you to report based on your medical condition ?? Vision changes ?? Headache or stiff neck ?? Recurrence of the sty ?? [id number] [employer]. [address] [place] [address], [place] [address]. All rights reserved. This information is not intended as a substitute for professional medical care. Always follow your healthcare professional's instructions. documented in this encounter Progress Notes Darcy Baltazar MD - 09/21/2016 8:20 AM CDT SUBJECTIVE: Chief Complaint Patient presents with ??? Urgent Care ??? Eye Problem Swollen L upper eyelid x3 days History of Present Illness: Talya Lyle is a 25 year old female who presents complaining of mild left eye eyelid redness, swelling and lump noted for 3 day(s). Onset/timing: gradual, worsening. Associated Signs and Symptoms: mild puffiness left upper eyelid Treatment measures tried include: flushed with water , warm packs and abx ointment Contact wearer : No No past medical history on file. ALLERGIES: Review of patient's allergies indicates no known allergies. Current Outpatient Prescriptions on File Prior to Visit: acetaminophen (TYLENOL) 500 MG tablet Take 1 tablet by mouth every 6 hours as needed for pain. ibuprofen (ADVIL,MOTRIN) 400-800 mg tablet Take 2 tablets by mouth every 8 hours as needed (cramping). No current facility-administered medications on file prior to visit. Social History Substance Use Topics ??? Smoking status: Never Smoker ??? Smokeless tobacco: Not on file ??? Alcohol use No No family history on file. ROS: INTEGUMENTARY/SKIN: NEGATIVE for worrisome rashes, moles or lesions EYES: NEGATIVE for vision changes or irritation GI: NEGATIVE for nausea, abdominal pain, heartburn, or change in bowel habits OBJECTIVE: BP 98/56 (BP Location: Right arm, Patient Position: Chair, Cuff Size: Adult Regular) Pulse 77 Temp 98.3 ??F (36.8 ??C) (Oral) SpO2 96% General: no acute distress Right eye:JOSE, EOMI, fundi normal, corneas normal, no foreign bodies, visual acuity normal both eyes, no periorbital cellulitis Left eye: JOSE, EOMI, fundi normal, corneas normal, no foreign bodies, visual acuity normal both eyes, no periorbital cellulitis Abnormal eye findings: left eye Upper eyelid redness with pustule near the lid margin 2 mm in size Ears: normal canals, TMs bilaterally, normal TM mobility Nose: NORMAL - no drainage, turbinates normal in size. Neck: supple, non-tender, free range of motion, no adenopathy ASSESSMENT/ PLAN Hordeolum externum of left upper eyelid - trimethoprim-polymyxin b (POLYTRIM) ophthalmic solution; Apply 1 drop to eye every 4 hours for 6 days - cephALEXin (KEFLEX) 500 MG capsule; Take 1 capsule (500 mg) by mouth 3 times daily x 10 days Apply warm wash cloth to the affected eye Antibiotic eye drops as prescribed Follow-up with ophthalmology if the stye is persistent and bothersome for incision, drainage, curette documented in this encounter Nursing Notes Triny Espinoza CMA - 09/21/2016 8:20 AM CDT Images from the original note were not included. Chief Complaint Patient presents with ??? Urgent Care ??? Eye Problem Swollen L upper eyelid x3 days Initial BP 98/56 (BP Location: Right arm, Patient Position: Chair, Cuff Size: Adult Regular) Pulse77 Temp 98.3 ??F (36.8 ??C) (Oral) SpO2 96% Estimated body mass index is 20.67 kg/(m^2) as calculated from the following: Height as of 04/09/11: 5' 9 (1.753 m). Weight as of 04/09/11: 140 lb (63.5 kg). Medication Reconciliation: complete Triny Espinoza CMA (AAMA) documented in this encounter Plan of Treatment Not on filedocumented as of this encounter Visit Diagnoses Diagnosis Hordeolum externum of left upper eyelid - Primary Hordeolum externum documented in this encounter
--- OUTSIDE RECORDS SUMMARY | 2022-04-03 13:59 | XMS_ITS | Encounter Summary ---
:1990 Author Organization [place] Address [facility] [place] [address] Care Team Providers Name Role Phone Unavailable Primary Care Provider Unavailable Encounter Details Date Type Department Care Team Description 12/30/2004 Emergency room Octavio Griffith MD [address] [place], [place] [address] (Wo rk) Social History Tobacco Use Types Packs/Day Years Used Date Smoking Tobacco: Never Assessed Sex Assigned at Date Recorded Not on file documented as of this encounter Progress Notes Interface, Pitch Filler - 12/30/2004 11:59 PM CDT : 89 CHIEF COMPLAINT: Injury left gupta. HISTORY OF PRESENT ILLNESS: This is a 14-year-old young lady who was apparently playing horseshoes last night and fell into the horseshoe pit and scraped her left gupta on the horseshoe stake. She sustained a bruise and laceration to the anterior left gupta. The accident occurred approximately 7:00 p.m. last evening, so almost 24 hours ago now. PAST MEDICAL HISTORY: Unremarkable. ALLERGIES: None are known. MEDICATIONS: None currently. REVIEW OF SYSTEMS: See HPI and past medical history above. All other systems are negative. SOCIAL HISTORY: Lives with her family. PHYSICAL EXAM: Temp 97.2, respiratory rate 18, heart rate 70, blood pressure 90/50, O2 saturations 99 percent on room air. The patient is pink, awake, alert, and oriented times 3. LEFT LOWER EXTREMITY: The patient has a V-shaped laceration with a nonviable flap. The total length of the laceration is 3 cm by 3.2 cm, the flap is nonviable, discolored. The laceration does not penetrate very deeply and is oozing slightly. The width of the exposed tissue is 1.0 cm at the widest down to about 2 mm at the tip of the flap. The patient has normal distal CMS, is able to flex and extend the knee and the ankle and is able to ambulate without difficulty. COURSE IN THE EMERGENCY ROOM: I explained to the patient and to her mother that we could not suture this at this point since it has been almost 24 hours now and the risk of infection is too great to attempt to suture. Generally, lacerations need to be sutured within 6 or perhaps 8 hours, apparently the child also did not clean this up very much last night. The area was prepped and cleansed vigorously with hibiclens and saline. Bacitracin gauze dressing was applied. X-ray of the tib/fib was obtained that was unremarkable. I discussed with the patient and her mother that the x-ray was fine and showed no chip fractures of the gupta bone/tibia and I discussed the plan below. PLAN: 1. Ice and elevate p.r.n. 2. Cleanse the area 3 to 4 times a day with soap and water and apply bacitracin and a dressing for the next 3 or 4 days. It is going to scab over thereafter and she could just leave it open and does not need to dress it. DIAGNOSES: 1. Contusion left gupta. 2. Flap laceration left gupta 23 hours old, not sutured. [id number] _ OCTAVIO GRIFFITH MD 181:0 MT: Document: [id number] [place], [place] Name: MR#: [id number] EMERGENCY ROOM ENCOUNTER Page 2 of 2 ZOEYN: BRIAN DSC: 12/30/2004 [place], [place] Name: MR#: [id number] : Admit Date: Account #: 1990 12/30/2004 [id number] Doctor: OCTAVIO GRIFFITH MD EMERGENCY ROOM ENCOUNTER Page 1 of 2 documented in this encounter Plan of Treatment Not on filedocumented as of this encounter Visit Diagnoses Not on filedocumented in this encounter
--- OUTSIDE RECORDS SUMMARY | 2022-04-03 13:59 | XMS_ITS | Encounter Summary ---
:1990 Author Organization [place] Address [address] [facility] [place] [address] Care Team Providers Name Role Phone [facility], [facility] Primary Care Provider [phone] Jam Drew PA-C Unavailable [phone] Jam Drew PA-C Unavailable [phone] Reason for Visit Reason Comments Mass bump on left lower leg x10 d ays Encounter Details Date Type Department Care Team Description 08/05/2017 Office Visit [facility] [place] [facility] (Primary Dx) [address] [facility], [address] [place] [id number] [place], [place] [phone] (Wo rk) [id number] [phone] Social History Tobacco Use Types Packs/Day Years Used Date Smoking Tobacco: Never Smokeless Tobacco: Never Alcohol Use Standard Drinks/Week Comments No 0 (1 standard drink = 0.6 oz pure alcoho l) Sex Assigned at Date Recorded Not on file documented as of this encounter Last Filed Vital Signs Vital Sign Reading Time Taken Comments Blood Pressure 102/72 08/05/2017 4:32 PM CDT Pulse 84 08/05/2017 4:32 PM CDT Temperature 37.3 ??C (99.2 ??F) 08/05/2017 4:32 PM CDT Respiratory Rate 16 08/05/2017 4:32 PM CDT Oxygen Saturation 100% 08/05/2017 4:32 PM CDT Inhaled Oxygen Concentration - - Weight 63.6 kg (140 lb 4.8 oz) 08/05/2017 4:32 PM CDT Height 174.6 cm (5' 8.75) 08/05/2017 4:32 PM CDT Body Mass Index 20.87 08/05/2017 4:32 PM CDT documented in this encounter Patient Instructions Patient InstructionsJam Drew PA-C - 08/05/2017 5:08 PM CDT Images from the original note were not included. Epidermoid Cyst (Sebaceous Cyst), No Infection An epidermoid cyst (sebaceous cyst) is a term that refers to 2 similar types of cysts: those found in the skin (epidermoid), and those found around hair follicles (pilar). Some general facts about these cysts: ?? A cyst is a sac filled with material that is often cheesy, fatty, oily, or fibrous. The material in them can be thick (like cottage cheese) or liquid. ?? They form slowly under the skin, and can be found on most parts of the body. They are most often found in hairier areas like the scalp, face, upper back, and genitals. ?? You can usually move them slightly if you try. ?? They can be smaller than a pea or as large as a few inches. ?? They are usually not painful, unless they become inflamed or infected. ?? The area around the cyst may smell bad. If the cyst breaks open, the material inside it often smells bad too. Causes Epidermoid cysts are caused when skin (epidermal) cells move under the skin surface, or are covered over by it. These cells continue to multiply, like skin does normally. They then form a wall around themselves (cyst) and secrete normal skin fluids (keratin). This may be developmental. But it often happens because of an injury to the skin. Epidermoid cysts are often found around hair follicles. These follicles are like cysts, but they have openings. Normal lubricating oils for your hair are sent out through these openings. A cyst occurs when an opening becomes blocked or the site inflamed. This often occurs when there is damage to the hair follicles by a scrape or wound. ?? Pilar cysts are similar to epidermoid cysts. But they start from a different part of the hair follicle, and are more likely to be on the scalp. Symptoms ?? Feeling a lump just beneath the skin ?? It may or may not be painful ?? The cyst may or may not smell bad ?? The cyst may become inflamed or red ?? The cyst may leak fluid or thick material Home care Epidermoid cysts often go away without any treatment. If your cyst doesn???t go away, and it bothersyou, it may be drained or removed. If the cyst drains on its own, it may return. Resist the temptation to squeeze, pop, stick a needle in it, or cut it open. This often leads to an infection and scarring. If it gets severely inflamed or infected, you should seek medical care. Be sure to clean the cystarea when bathing or showering. Watch for the signs of infection listed below. Follow-up care Follow up with your healthcare provider, or as advised. When to seek medical advice Call your healthcare provider right away if any of these occur: ?? Swelling, redness, or pain ?? Pus coming from the cyst Date Last Reviewed: 12/18/2015 ?? [id number] [employer]. [address] [place] [address]. All rights reserved. This information is not intended as a substitute for professional medical care. Always follow your healthcare professional's instructions. documented in this encounter Progress Notes Jam Drew PA-C - 08/05/2017 4:20 PM CDT Images from the original note were not included. History of Present Illness Diet: Regular (no restrictions) Frequency of exercise: None Taking medications regularly: Yes Medication side effects: None Additional concerns today: No SUBJECTIVE: Talya Lyle is a 26 year old female who presents to clinic today for the following health issues: Concern - Bump on leg Onset: x10 days ?? Description: Small bump under the skin on her left gupta ?? Intensity: mild ?? Progression of Symptoms: same ?? Accompanying Signs & Symptoms: No signs of itching, redness, tenderness; mild discoloration but patient isn't sure if it's from herpushing on it. ?? Previous history of similar problem: None ?? Precipitating factors: Worsened by: None ?? Alleviating factors: Improved by: None Answers for HPI/ROS submitted by the patient on 08/05/2017 PHQ-2 Score: 0 Therapies Tried and outcome: None Patient concerned about a lump on her lower left leg. There is no pain with this. She noticed it about 10 days ago. Problem list and histories reviewed & adjusted, as indicated. Additional history: as documented Reviewed and updated as needed this visit by clinical staff Reviewed and updated as needed this visit by Provider ROS: Constitutional, HEENT, cardiovascular, pulmonary, gi and gu systems are negative, except as otherwise noted. OBJECTIVE: BP 102/72 (BP Location: Right arm, Patient Position: Chair, Cuff Size: Adult Regular) Pulse 84 Temp 99.2 ??F (37.3 ??C) (Tympanic) Resp 16 Ht 5' 8.75 (1.746 m) Wt 140 lb 4.8 oz (63.6 kg) SpO2 100% ? No BMI 20.87 kg/m2 Body mass index is 20.87 kg/(m^2). GENERAL: healthy, alert and no distress MS: no gross musculoskeletal defects noted, no edema SKIN: very small 3-4mm cyst present on anterior left gupta. Non tender, smooth. No erythema or drainage noted in the area. NEURO: Normal strength and tone, mentation intact and speech normal PSYCH: mentation appears normal, affect normal/bright Diagnostic Test Results: none ASSESSMENT/PLAN: 1. Sebaceous cyst - discussed diagnosis, will observe. Follow up prn. Please abstract the following data from this visit with this patient into the appropriate field in [facility]: Pap smear done on this date: 02/2017 (approximately), by this group: [facility], results were normal. Patient Instructions Epidermoid Cyst (Sebaceous Cyst), No Infection An epidermoid cyst (sebaceous cyst) is a term that refers to 2 similar types of cysts: those found in the skin (epidermoid), and those found around hair follicles (pilar). Some general facts about these cysts: ?? A cyst is a sac filled with material that is often cheesy, fatty, oily, or fibrous. The material in them can be thick (like cottage cheese) or liquid. ?? They form slowly under the skin, and can be found on most parts of the body. They are most often found in hairier areas like the scalp, face, upper back, and genitals. ?? You can usually move them slightly if you try. ?? They can be smaller than a pea or as large as a few inches. ?? They are usually not painful, unless they become inflamed or infected. ?? The area around the cyst may smell bad. If the cyst breaks open, the material inside it often smells bad too. Causes Epidermoid cysts are caused when skin (epidermal) cells move under the skin surface, or are covered over by it. These cells continue to multiply, like skin does normally. They then form a wall around themselves (cyst) and secrete normal skin fluids (keratin). This may be developmental. But it often happens because of an injury to the skin. Epidermoid cysts are often found around hair follicles. These follicles are like cysts, but they have openings. Normal lubricating oils for your hair are sent out through these openings. A cyst occurs when an opening becomes blocked or the site inflamed. This often occurs when there is damage to the hair follicles by a scrape or wound. ?? Pilar cysts are similar to epidermoid cysts. But they start from a different part of the hair follicle, and are more likely to be on the scalp. Symptoms ?? Feeling a lump just beneath the skin ?? It may or may not be painful ?? The cyst may or may not smell bad ?? The cyst may become inflamed or red ?? The cyst may leak fluid or thick material Home care Epidermoid cysts often go away without any treatment. If your cyst doesn???t go away, and it bothersyou, it may be drained or removed. If the cyst drains on its own, it may return. Resist the temptation to squeeze, pop, stick a needle in it, or cut it open. This often leads to an infection and scarring. If it gets severely inflamed or infected, you should seek medical care. Be sure to clean the cystarea when bathing or showering. Watch for the signs of infection listed below. Follow-up care Follow up with your healthcare provider, or as advised. When to seek medical advice Call your healthcare provider right away if any of these occur: ?? Swelling, redness, or pain ?? Pus coming from the cyst Date Last Reviewed: 12/18/2015 ?? [id number] [employer]. [address] [place] [address], [place] [address]. All rights reserved. This information is not intended as a substitute for professional medical care. Always follow your healthcare professional's instructions. Jam Drew PA-C [facility] Physical Exam documented in this encounter Nursing Notes Cecy Ramirez CMA - 08/05/2017 4:20 PM CDT Chief Complaint Patient presents with ??? Mass bump on left lower leg x10 days Initial BP 102/72 (BP Location: Right arm, Patient Position: Chair, Cuff Size: Adult Regular) Pulse 84 Temp 99.2 ??F (37.3 ??C) (Tympanic) Resp 16 Ht 5' 8.75 (1.746 m) Wt 140 lb 4.8 oz (63.6kg) SpO2 100% ? No BMI 20.87 kg/m2 Estimated body mass index is 20.87 kg/(m^2) ascalculated from the following: Height as of this encounter: 5' 8.75 (1.746 m). Weight as of this encounter: 140 lb 4.8 oz (63.6 kg). Medication Reconciliation: complete Patient declines all immunizations. Cecy Ramirez CMA ([facility]) documented in this encounter Plan of Treatment Not on filedocumented as of this encounter Visit Diagnoses Diagnosis Sebaceous cyst - Primary documented in this encounter Care Teams Tin Can Laborer Relationship Specialty Start Date End Date [facility] PCP - General 08/05/[address] [place] [place] [address] Jam Drew PA-C PCP - Assigned PCP 07/24/17 07/21/18 [address] [place] [address] Jam Drew PA-C Assigned PCP 07/24/17 08/06/20 [id number] [address] [address] documented as of this encounter
--- OUTSIDE RECORDS SUMMARY | 2022-04-03 13:59 | XMS_ITS | Clinical Summary ---
:1990 Author Organization [place] Address [address] [facility] [place] [address] Care Team Providers Name Role Phone [facility], [facility] Primary Care Provider [phone] Allergies No known active allergies Medications Medication Sig Dispensed Refills Start Date End Date Status ibuprofen Take 2 tablets by 40 tablet 0 04/10/2011 A ctive (ADVIL,MOTRIN) 400-800 mouth every 8 mg tabletIndications: hours as needed Vaginal delivery (cramping). drospirenone-ethinyl Take 1 tablet by 0 11/19/2016 Active estradiol (OCELLA) mouth 3-0.03 MG per tablet Active Problems No known active problems Resolved Problems Problem Noted Date Resolved Date labor in second trimester with delivery in 1 06/10/2010 04/10/2011 second trimester Overview: Do you wish to do the replacement in the background? yes Family History Medical History Relation Comments No Known Problems Brother Diabetes Father Type 1 Other - See Comments Father d. MVA No Known Problems Mother Diabetes Paternal Grandfather Other - See Comments Paternal Grandfather from complica tions during surgery No Known Problems Sister 1 No Known Problems Sister 2 No Known Problems Sister 3 No Known Problems Son 1 No Known Problems Son 2 Relation Status Comments Brother Alive Father Maternal Grandfather Alive Maternal Grandmother Alive Mother Alive Paternal Grandfather Paternal Grandmother Alive Sister 1 Alive Sister 2 Alive Sister 3 Alive Son 1 Alive Son 2 Alive Social History Tobacco Use Types Packs/Day Years Used Date Smoking Tobacco: Never Smokeless Tobacco: Never Alcohol Use Standard Drinks/Week Comments Yes 0 (1 standard drink = 0.6 oz pure alcoho l) occasional Sex Assigned at Date Recorded Not on file Last Filed Vital Signs Vital Sign Reading Time Taken Comments Blood Pressure 109/68 01/10/2018 5:00 PM CDT Pulse 84 08/05/2017 4:32 PM CDT Temperature 36.7 ??C (98 ??F) 01/10/2018 3:32 PM CDT Respiratory Rate 16 01/10/2018 3:32 PM CDT Oxygen Saturation 91% 01/10/2018 4:30 PM CDT Inhaled Oxygen Concentration - - Weight 63 kg (139 lb) 01/10/2018 3:32 PM CDT Height 175.3 cm (5' 9) 01/10/2018 3:32 PM CDT Body Mass Index 20.53 01/10/2018 3:32 PM CDT Plan of Treatment Not on file Insurance Payer Benefit Plan / Subscriber ID Effective Dates Phone Addre ss Type Group BCBS BCBS OUT OF [id number] 2017-Present [phone] [address] [address] [place] [address] Care Teams Telephone Cleaner Relationship Specialty Start Date End Date Clinic, [facility] PCP - General 08/05/17 [employer] CE[employer]OSTER [place], [place] [id number]
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
--- OUTSIDE RECORDS SUMMARY | 2022-04-03 13:59 | XMS_ITS | Encounter Summary ---
:1990 Author Organization [place] Address [address] [place] [address] Care Team Providers Name Role Phone Unavailable Primary Care Provider Unavailable Reason for Visit Reason Comments Labor BLEEDING? Auth/Cert - Closed Specialty Diagnoses / Procedures Referred By Contact Refer red To Contact sales planner [facility] [address] [place], [place] [phone] Phone: Fax: Referral ID Status Reason Start Date Expiration Date Visits Requ ested Visits Authorized [id number] Closed 05/29/2011 11/25/2011 1 1 Encounter Details Date Type Department Care Team Description 04/09[facility]2011 [facility] [address] [place] [phone] Vaginal delivery 04/10/2011 [facility] Terra Olivera MD [facility] [address] [place] [id number] [address] [place] [address] Social History Tobacco Use Types Packs/Day Years Used Date Smoking Tobacco: Never Alcohol Use Standard Drinks/Week Comments No 0 (1 standard drink = 0.6 oz pure alcoho l) Sex Assigned at Date Recorded Not on file documented as of this encounter Last Filed Vital Signs Vital Sign Reading Time Taken Comments Blood Pressure 109/58 04/10/2011 10:00 AM REGISTERED NURSE Pulse 84 04/10/2011 10:00 AM REGISTERED NURSE Temperature 36.6 ??C (97.8 ??F) 04/10/2011 10:00 AM REGISTERED NURSE Respiratory Rate 18 04/10/2011 10:00 AM REGISTERED NURSE Oxygen Saturation - - Inhaled Oxygen Concentration - - Weight 63.5 kg (140 lb) 04/09/2011 11:41 PM REGISTERED NURSE Height 175.3 cm (5' 9) 04/09/2011 11:41 PM REGISTERED NURSE Body Mass Index 20.67 04/09/2011 11:41 PM REGISTERED NURSE Body Mass Index Percentile 40.97 % 04/09/2011 11:[address] Growth Chart: [facility] (Girls, 2-20 Years) documented in this encounter Discharge Instructions Discharge InstructionsMariella Mai RN - 04/10/2011 3:45 PM CST STERED NURSE documented in this encounter Medications at Time of Discharge Medication Sig Dispensed Refills Start Date End Date ibuprofen (ADVIL,MOTRIN) Take 2 tablets by 40 tablet 0 03/20 400-800 mg mouth every 8 hours tabletIndications: Vaginal as needed delivery (cramping). acetaminophen (TYLENOL) Take 1 tablet by 0 201008/05/2017 500 MG tabletIndications: mouth every 6 hours Vaginal delivery as needed for pain. documented as of this encounter Progress Notes Octavio Peng LSW - 04/10/2011 11:35 AM CST D) SWS responding to MD consult. I) Met with Talya and Braydon who live together with Talya's parents in [place]. They have experienced the loss of their 22 5/7 week son Ulysses. [place]. They will work on a cemetery with their parents and the home. SWS gave resources for [facility] burial assistance and Braydon will call them. SWS also discussed grief/depression and gave information on this. A) Pt is A&O, appropriately crying. Braydon is at bedside and supportive. Both of their families live nearby and are very supportive. P) No further d/c needs at this time. STERED NURSE Terra Olivera MD - 04/10/2011 8:33 AM CST OB Post- Note PPD# 0 S: Pt sleeping. Answers questions appropriately but goes back to sleep. Pain controlled. Bleeding minimal. O: BP 97/67 Pulse 68 Temp 97.5 ??F (36.4 ??C) Resp 18 Ht 1.753 m (5' 9) Wt 63.504 kg (140lb) BMI 20.67 kg/m2 ? Unknown Gen- A&O, NAD Abd- Non-tender O positive Rubella Immune A/P: 20 year old PPD# 0 s/p at 22 weeks, demise after delivery 1. Routine post- cares. 2. Anticipate d/c home today. 3. SW to see patient today. 4. Unable to give post- instructions as patient continued to fall back to sleep. If able, willreturn at a later time to review discharge instructions. 5. Rh positive Terra Olivera 04/10/2011 8:45 AM STERED NURSE Selena Nazario MD - 04/10/2011 2:55 AM CST Pt delivered a 470 gm male at 0123 hours. Pronounced at 0211 hours. No obvious etiology at delivery. See dictated delivery note. labs drawn as well as Hgb a1c, KB, urine tox, placental cultures, chromosomes sent. Pt declines autopsy. Anticipate home later on 04/10. STERED NURSE documented in this encounter H&P Notes Selena Nazario MD - 04/10/2011 2:28 AM CST Talya Nunez [id number] OB Admit History & Physical HPI: Ms. Nunez is a 20 year old @ 22w5d by early US who presented to L&D c/o cramping and vaginal spotting. Cramping since evening 04/09/11. No fevers, N/v, diarrhea, UTI sx. Had not felt well the week before with headaches. course: 1st visit at ?10 weeks in [place]. Had early US due to uncertain LMP which gave herEDC. Not clear if any care since. Says missed her last appt there and was not yet established in [place] . No records available complications: Unknown as little care labs:,pending draw today OB history: Obstetric History T0 TAB0 SAB0 E0 M0 L0 Name of Baby Sam HUTCHINS ??? Outcome Date 04/10/11 GA 22w 5d ??? Delivery Type Not recorded ??? at 1 min. 1 at 5 min. 1 ??? Living Not recorded PMHx: History reviewed. No pertinent past medical history. PSHX: History reviewed. No pertinent past surgical history. Meds: Current facility-administered medications Medication ??? nalbuphine (NUBAIN) 10 MG/ML injection ??? oxytocin 20 units in 0.9% NaCl (PITOCIN) 20 Units/1000 mL infusion ??? oxytocin (PITOCIN) 10 UNIT/ML injection ??? lidocaine 1 % injection ??? oxytocin (PITOCIN) 20 units in 0.9% NaCl 1000 mL ??? ibuprofen (ADVIL,MOTRIN) tablet 400-800 mg ??? acetaminophen (TYLENOL) tablet 650 mg ??? naloxone (NARCAN) injection 0.1-0.4 mg ??? bisacodyl (DULCOLAX) suppository 10 mg ??? phosphate (FLEET) enema 1 enema ??? measles, mumps and rubella vaccine (MMR) injection 0.5 mL ??? rho(D) immune globulin (HYPERRHO/RHOGAM) injection - Full Dose 300 mcg ??? zolpidem (AMBIEN) tablet 5 mg ??? lactated ringers BOLUS 1,000 mL ??? oxytocin (PITOCIN) 20 units in 0.9% NaCl 1000 mL ??? Tdap (gcldgpj-idvgkekicq-mdfjr pertussis) (ADACEL) vaccine for Adults or Adolescents 0.5 mL Allergies: Review of patient's allergies indicates no known allergies. REVIEW OF SYSTEMS: Positives and negatives in HPI. SocHx: History Social History ??? Marital Status: Single Spouse Name: N/A Number of Children: N/A ??? Years of Education: N/A Occupational History ??? Not on file. Social History Main Topics ??? Smoking status: Never Smoker ??? Smokeless tobacco: Not on file ??? Alcohol Use: No ??? Drug Use: No ??? Sexually Active: Yes Other Topics Concern ??? Not on file Social History Narrative ??? No narrative on file Fam Hx: History reviewed. No pertinent family history. PHYSICAL EXAM: Vitals: BP 125/70 Pulse 86 Temp(Src) 98.5 ??F (36.9 ??C) (Oral) Resp 18 Ht 1.753 m (5' 9) Wt 63.504 kg (140 lb) BMI 20.67 kg/m2 Alert Awake with severe cyclic cramping ABD gravid,with fundus at umbiicus Cervix: Completely dilated with BBOW at introitus EFM: Baseline normal no decels Assessment: IUP at 22w5d admitted for labor with advanced dilation Plan: NICU to attend delivery - anticipate now @SIGNATURE@ SELENA NAZARIO MD Dept of [employer] SALES REPRESENTATIVE April 10, 2011 STERED NURSE documented in this encounter Consult Notes Alivia Rosas MD - 04/10/2011 2:39 AM CST NICU Consultation NICU attendance requested for delivery of this 22 5/7 [address] GA male by Dr. Nazario. Mother is an 18year old , with limited care with one visit with an early ultrasound dating this to 22 5/7 weeks today, unknown LMP. Mother admitted via ED with severe abdominal pain,noted to be completely dilated. No betamethasone given due to precipitous labor. Delivered vaginallyat 0128, no respiratory effort noted, low HR of 60 bmp, severe bruising, and physical exam consistent with extreme 22 week prematurity with eyes fused, gelatinous skin, severe ecchymoses, no spontaneous movement. Infant given PPV x 1 min by DRIVEMATIC MACHINE OPERATOR Meg Escalera without improvement in HR. Apgars 1, 1, 1, weight 470grams. I arrived to the delivery room at about 8 mins of life and confirmed physical examination consistent with extreme 22 week prematurity. Discussed our recommendations to do no further resuscitation given grim prognosis at this gestational age and parents expressed understanding of current situation. remained with low HR about 40 bmp and very minimal respiratory effort until progression to asystole with time of 021. Recommended consideration of autopsy and chromosome evaluation and family will consider. Cultures of placenta pending. I am sorry there was not more we could offer for this family. Please contact the NICU if there are any further questions. Attestation: I was present in the delivery room after 8 mins of age and supervised the resuscitationof this . Alivia Rosas MD STERED NURSE documented in this encounter Miscellaneous Notes Plan of Care - Mariella Mai RN - 04/10/2011 3:49 PM CST Problem: Following Vaginal Delivery (Obstetrics) Goal: Prevent/Manage Potential Problems Signs and symptoms of listed problems will be absent or manageable. Pt given hard copy of post loss instructions since unable to retrieve instructions per [facility]. Pt verbalizes understanding of instructions. Pt and accompanied per ambulatory to car @ 1215 STERED NURSE Plan of Care - Mariella Mai RN - 04/10/2011 2:35 PM CST 11:30 Pt desires to leave hospital now, in hallway with belongings. Dr. Olivera updated and d/c orders received with discharge instructions to be shared with pt's. Terra MOTT met with pt and earlier this am to discuss plans for disposition of . Parents have chosen [place] home in [place] and they did contact the home. Momentos given to pt and discharge instructions reviewed which she verbalizes understanding of. Pt teary at times, said goodbye to prior to leaving room. Pt and encouraged to seek out support groups and let family help them. STERED NURSE Plan of Care - Imani Hagan RN - 04/10/2011 6:46 AM CST Problem: Following Vaginal Delivery (Obstetrics) Goal: Prevent/Manage Potential Problems Signs and symptoms of listed problems will be absent or manageable. Patient VSS, vagianl bleeding WNL & she denies pain.[facility] STERED NURSE Plan of Care - Imani Hagan RN - 04/10/2011 6:36 AM CST Problem: IP GENERAL POC-ADULT,OB,BEHAVIORAL FVCPM Goal: Individualization/Patient-Specific Goal (Adult,OB,Behavioral The patient and/or their printing sales representative will achieve their patient-specific goals related to the plan of care. The patient-specific goals include:The patient will be able to understand the grief process due loss.and pain will be well control with pain medication & complementary therapy. Outcome: Improving Patient denies pain at this time. STERED NURSE Plan of Care - Imani Hagan RN - 04/10/2011 6:34 AM CST Problem: IP GENERAL POC-ADULT,OB,BEHAVIORAL FVCPM Goal: Individualization/Patient-Specific Goal (Adult,OB,Behavioral The patient and/or their printing sales representative will achieve their patient-specific goals related to the plan of care. The patient-specific goals include:The patient will be able to understand the grief process due loss.and pain will be well control with pain medication & complementary therapy. Outcome: Improving After communication with corporate development officer & after emotional support she verbalized & accept herloss by crying & showing interest in holding baby.The patient & SO spent the time with baby.Private space provided to the family.Patient & father of the baby hold the bay & participted in picture taking.Answered their questions.Spiritual support & camila support offered however declined at this time. STERED NURSE L&D Delivery Note - Selena Nazario MD - 04/10/2011 2:54 AM REGISTERED NURSE HISTORY: Talya Nunez is an 20-year-old, 1, para 0, at 22 weeks 5 days by early ultrasound, who presented to Labor and Delivery early this morning with abdominal cramping and vaginal spotting. She said she had been cramping since the evening of 04/09/2011. She denied any current fevers, nausea, vomiting, diarrhea, UTI symptoms or abdominal trauma. She said she had not felt well the week before with headaches. She had a visit in [place] in the first trimester, and had an early ultrasound at approximately 10 weeks that gave her a due date of 08/09/2011. No records are available, and it is not clear if she had any labs. She did not have any further visits, as she said she missed [facility] and was not yet established here in [place]. Her past medical history is noncontributory. She has had no medical illnesses, no previous surgeries, no allergies, no medications. She does not smoke or use alcohol or drugs, per her report. LABOR AND DELIVERY: On admission, heart tones were reassuring for 22 weeks gestation. She was uncomfortable and writhing with cramping. She had a small amount of spotting. I was called for orders, and instructed them to check her cervix to be sure that she did not have advanced cervical dilatation, given the severe cramping. On exam by the nurse, indeed the patient was completely dilated with a bag of water bulging in the vagina. She was immediately admitted to a labor room and I came to the hospital. The Intensive Care Unit was called and came in to talk to the patient. On my exam, indeed the bag of water was at the introitus. She was having severe cramping with a contraction approximately every 2 minutes. The bag of spear was not ruptured at that time, as Iwas hoping the baby would deliver en caul. Vaginal exam showed a bulging bag of water, but the fetalparts were not immediately palpable. With each cramp, she pushed, and after 4 or 5 pushes, the bag of water was outside the introitus, and I could feel the parts presenting, which felt at least part like a vertex. With the next push, she delivered the baby and bag of water en caul. Outside the perineum, the membranes were ruptured with clear fluid. The baby was in a transverse position. The baby was placed on the abdomen, and the cord doubly clamped and cut, and the baby handed to a nurse practitioner in attendance. Findings were a 470 gram male infant at 01:28 with Apgars of 1 at 1 minute, 1 at 5 minutes, and the baby's heartbeat ceased completely at 02:11. At , the heart rate was in the 60s. The baby appeared tohave some bruises across the scalp and extremities. There was no movement. There were no audible breath sounds. No resuscitation was attempted due to the gross immaturity by gestational age and physical appearance. Compound Coating Machine Offbearer, Dr. Rosas, also arrived, and assessed the baby, and agreed with no further intervention. Comfort care was given, and the heart rate slowed and eventually stopped at 02:11. An IV was then started, and the patient had some mild vaginal bleeding. We waited for the placenta to separate, and Pitocin was begun IV 40 units in a liter. However, immediately after beginning that, the patient felt cramping, and the placenta was palpable, high in the vagina. She pushed, and at approximately 01:45, she spontaneously delivered an intact placenta. There was an eccentric cord insertion, but the placenta otherwise appeared normal. Maternal and side and side cultures were taken. A segment of the placenta near the insertion of the cord was cut away and put in saline for chromosomes. The mother's perineum and vagina were inspected, and were intact without any laceration, and she required no repair. Bleeding was minimal following delivery of the placenta. All sponge and needle counts were correct following delivery. PLAN: The patient will undergo an evaluation, including labs, hemoglobin A1c, Kleihauer-Betke, urine tox screen, placental cultures, chromosomes, and we will inquire about an autopsy. She was instructed that in a future , she needs early and close care, and also needs follow-up to consider more evaluation. SELENA NAZARIO MD MT: [id number] Name: TALYA NUNEZ MRN: [id number] Account: [id number] : 1990 Delivery Date: 04/10/2011 Document: [id number] STERED NURSE Significant Event - Rylie Ramires LPN - 04/10/2011 2:44 AM CST Was a scribe for an [employer] which was called at 0105 for a response team for a deliveryof a 22 5/7 week gestational mom. Team arrived at 0107, including DRIVEMATIC MACHINE OPERATOR, Cardiopulmonary, Intensive Care Staff, and Nuclear Control Room Operator. Baby Micah Nunez was born at 0128. He was warmed and suctioned please see delivery record for further documentation. Weight was 470 grams, Dr. Rosas arrived and assumed care. Rylie Ramires LPN STERED NURSE Plan of Care - Imani Hagan RN - 04/10/2011 12:10 AM CST [address] Nazario updated regarding her SVE complete BBOW in introitus. STERED NURSE Plan of Care - Imani Hagan RN - 04/09/2011 11:58 PM CST 2358 [address] 22 wks+5days who presented to [facility] from ED,with C/O cramping & vaginal spoting.Cramping started since evening.She denies nausea, vomiting, diarrhea, or fevers.She had minimal & had not established any care since she moved to [place] from [place].VSS EFM applied & explained. [address] Zamora updated regarding her status .Orders received for vaginal exam & IV fluid. STERED NURSE documented in this encounter Plan of Treatment Not on filedocumented as of this encounter Procedures Procedure Name Priority Date/Time Associated Comments Diagnosis ABO/RH TYPE AND Routine 04/10/2011 2:30 AM Result s for this SCREEN REGISTERED NURSE procedure are i n the results section. GENITAL SPECIAL Routine 04/10/2011 1:50 AM Result s for this CULTURE AEROB REGISTERED NURSE procedure are in BACTERIAL the results section. GENITAL SPECIAL Routine 04/10/2011 1:50 AM Result s for this CULTURE AEROB REGISTERED NURSE procedure are in BACTERIAL the results section. CHROMOSOME ANALYSIS, Routine 04/10/2011 1:42 AM R esults for this SKIN/PRODUCTS OF REGISTERED NURSE procedure a re in CONCEPTION the results section. PLACENTA PATH ORDER Routine 04/10/2011 1:42 AM Re sults for this AND INDICATIONS REGISTERED NURSE procedure ar e in the results section. HEMOGLOBIN Routine 04/10/2011 1:07 AM Resul ts for this STAIN REGISTERED NURSE procedure are i n the results section. RUBELLA ANTIBODY IGG STAT 04/10/2011 1:07 AM R esults for this REGISTERED NURSE procedure are i n the results section. HEMOGLOBIN Routine 04/10/2011 1:07 AM Resul ts for this STAIN KLEIHAUER REGISTERED NURSE procedure ar e in the results section. HIV 1 AND 2 ANTIBODY STAT 04/10/2011 1:07 AM R esults for this (QUEST) REGISTERED NURSE procedure are i n the results section. HEPATITIS B SURFACE STAT 04/10/2011 1:07 AM Re sults for this ANTIGEN REGISTERED NURSE procedure are i n the results section. HEMOGLOBIN A1C Routine 04/10/2011 1:07 AM Results for this REGISTERED NURSE procedure are i n the results section. ANTI TREPONEMA STAT 04/10/2011 1:07 AM Results for this REGISTERED NURSE procedure are i n the results section. ABO/RH TYPE AND STAT 04/10/2011 1:07 AM Result s for this SCREEN REGISTERED NURSE procedure are i n the results section. DRUG ABUSE SCRN 7 UR Routine 04/10/2011 12:45 Res ults for this (/) AM REGISTERED NURSE procedur e are in (RH, SH, UR) the results section. SURGICAL PATHOLOGY Routine 04/10/2011 12:00 Resul ts for this EXAM AM REGISTERED NURSE procedure are i n the results section. documented in this encounter Results ABO/Rh type and screen (04/10/2011 2:30 AM REGISTERED NURSE) [facility] Method Time Signature ABO Canceled, GRANT Test credited [facility] RH(D) Canceled, GRANT Test credited [facility] Antibody Canceled, GRANT Screen Test credited [facility] Specimen 04/13/2011 GRANT Expires [facility] Blood Bank Duplicate request GRANT Comment 0321 ON 04.10.11 TT.SP [facility] Specimen Anatomical Collection Method Collection Time Receive d Time (Source) Location / / Volume Laterality Blood specimen 04/10/2011 2:30 AM 011 3:06 (specimen) REGISTERED NURSE AM REGISTERED NURSE Selena Nazario MD LAB - BLOOD BANK TEST ORDER Performing Organization Address City/State/ZIP Code Phon e Number M [facility] [address] [place], [place] [address] [facility] Genital special culture - Release order on delivery (04/10/2011 1:50 AM REGISTERED NURSE) Component Value Ref Test Analysis Performed At [facility] Range Method Time Signature Specimen Placenta [facility] LAB Culture Micro No Pathogens Isolated [facility] No beta hemolytic Streptococcus Group B isolated [facility] Micro Report FINAL 04/12/2011 [facility] Specimen Anatomical Collection Method Collection Time Receive d Time (Source) Location / / Volume Laterality Specimen from 04/10/2011 1:50 AM 04/10/20 11 3:41 placenta REGISTERED NURSE AM REGISTERED NURSE (specimen) Selena Nazario MD LAB - MICRO GENERAL ORDERABL ES Performing Organization Address City/State/ZIP Code Phon e Number M [facility] [address] [address] [facility] Genital special culture - Release order on delivery (04/10/2011 1:50 AM REGISTERED NURSE) Component Value Ref Test Analysis Performed At [facility] Range Method Time Signature Specimen [facility] LAB Culture Micro No Pathogens Isolated [facility] No beta hemolytic Streptococcus Group B isolated [facility] Micro Report FINAL 04/12/2011 [facility] Specimen Anatomical Collection Method Collection Time Receive d Time (Source) Location / / Volume Laterality Specimen from 04/10/2011 1:50 AM 04/10/20 11 3:40 placenta REGISTERED NURSE AM REGISTERED NURSE (specimen) Selena Nazario MD LAB - MICRO GENERAL ORDERABL ES Performing Organization Address City/State/ZIP Code Rubin Ko [facility] [address] [phone] [facility] Chromosome skin products of conception (04/10/2011 1:42 AM REGISTERED NURSE) Component Value Ref Test Analysis Performed At [facility] Range Method Time Signature Copath Report Patient Name: TALYA NUNEZ MR#: [id number] Specimen #: [id number] Collected: 04/10/2011 01:42 Received: 04/10/2011 13:30 Reported: 05/10/2011 20:14 Ordering Phy(s): SELENA NAZARIO Additional Phy(s): TYRON POST TEST(S) REQUESTED: Skin/POC Chromosome Analysis SPECIMEN DESCRIPTION: Placenta CLINICAL COMMENTS: Loss, 22 weeks 5 days Metaphases analyzed: ?20 Additional metaphases screened: ? 0 Metaphases karyotyped: ?2 Banding utilized: ? G-banding Band resolution: ? [phone] METHODS: In-situ coverslips. ISCN: ?? 46,XY INTERPRETATION: ? These findings represent a normal male karyotype. ??N o numerical or major structural chromosomal abnormality was found. Electronically Signed Out By: Esha Alegre M.D., [facility] TEST[facility] LAB LOCATION: [facility] [address], [facility] [address] [place] [id number] COLLECTION SITE: Client: ??[facility] Location: ??RHOB (R) Specimen Anatomical Collection Method Collection Time Receive d Time (Source) Location / / Volume Laterality 04/10/2011 1:42 AM 1 1:30 REGISTERED NURSE PM REGISTERED NURSE Selena Nazario MD LAB - BODY FLUIDS ORDERABLES Performing Organization Address City/State/ZIP Code Phon e Number [facility] Placenta path order and indications (04/10/2011 1:42 AM REGISTERED NURSE) Component Value Ref Test Analysis Performed At [facility] gist Range Method Time Signature Copath Patient Name: TALYA NUNEZ Report MR#: [id number] Specimen #: [id number] Collected: 04/10/2011 Received: 04/10/2011 Reported: 04/12/2011 15:31 Ordering Phy(s): SELENA NAZARIO SPECIMEN(S): A: Placenta B: Gross only, portion of placenta for chromosomes FINAL DIAGNOSIS: A. ??Placenta - 1. ?Second trimester, immature placenta. 2. ? Acute chorioamnionitis associated with chorionic ve ssel vasculitis. 3. ? Villous edema. 4. ? Chorionic plate with hemosiderin-laden macrophages, consistent with previous bleeding. 5. ? membranes with acute chorioamnionitis; no gadiel dence of decidual vasculopathy. 6. ? Three vessel umbilical cord with acute funisitis. B. ??Portion of placenta for chromosome study - 1. ?Gross examination and description only. 2. ? See separate report for cytogenetic analysis. Electronically signed out by: Tyron Bolaños M.D. CLINICAL HISTORY: 1, Para 0-1-0-0. ??Gestational age 22.7 weeks. ??Pre -term delivery with subsequent demise. ??Chromosome studies have been requested. GROSS: A. ??Received in formalin and labeled placenta, consists o f a cannon placenta. ??The 11 cm long and 1 cm wide triple-blood vessel umbilical cord is remarkable for a false knot. ??The pink-platt membrane s demonstrate patchy areas of thickening, essentially 100% marginal insert ion, and nearest point of rupture/opening at the edge of the placenta l disk. ??The membranes have a slightly yellow-cream discoloration focally , suggestive of meconium staining. ??The 174 gm, 13.5 x [address] disk demonstrates an eccentric 3 x 2 cm defect, consistent with s ampling for chromosome studies. ??The surface is essentially unrem arkable. ??The maternal surface demonstrates intact cotyledons with few adh erent blood clots peripherally. ??Serial sections reveal no gross eviden ce of retroplacental hemorrhage or other abnormalities. ??RS, four cassettes. B. ??Received in saline and labeled placental piece for chr omosome study consists of a single 4.5 x 3 x 1 cm portion of grossl y unremarkable placental disk. ??The specimen is leonel verma submitted for cytogenetic studies in RPMI medium. ??No slides are made for microscopic examination. ??/kd MICROSCOPIC: A. ??Sections show chorionic plate denuded of amnion. ??The chorionic plate is infiltrated by neutrophils diagnostic of acute chorioamnionitis, as well as hemosiderin-laden macrophages c onsistent with previous bleeding. ??The stem blood vessels appea r patent. The terminal chorionic villi are large and immature. ??Villo us edema is present. ??There is no evidence of thrombotic vasculop athy or chronic villitis. ??The basal lamina shows areas of hemorrha ge, as well as an area of acute inflammation. ??Subchorionic fibrin depo sits are also noted. ??Chorionic vessel vasculitis is also present in morteza tional sections of placental disk. ??The membranes show areas of degeneration and infiltration by neutrophils. ??The amnion i s denuded. Pigment-laden macrophages are present consistent with meconi um staining. There is no evidence of decidual vasculopathy. ??The umbili zohaib cord shows three blood vessels and allantoic duct remnant. ??The umbilical vein and adjacent Daviess's jelly are infiltrated by neutrop hils diagnostic of acute funisitis. ??There is no evidence of vas cular thrombosis. B. ??No microscopic sections were made. ??See separate repor t for cytogenetic analysis. DINORA/ilan DT04-12-11 TESTING LAB LOCATION: [facility] [address] [address] [place], [place] ??[phone] COLLECTION SITE: Client: [facility] Location: RHOB (R) Specimen Anatomical Collection Method Collection Time Receive d Time (Source) Location / / Volume Laterality Specimen from 04/10/2011 1:42 AM 04/10/20 11 8:09 placenta REGISTERED NURSE AM REGISTERED NURSE (specimen) Selena Nazario MD LAB - BEAKER AP Performing Organization Address City/State/ZIP Code Phon e Number [place] hemoglobin stain (04/10/2011 1:07 AM REGISTERED NURSE) [facility] gist Method Time Signature HGB (Note) [facility] Stain hemoglobin is less than 0.1% of the 2000 erythrocyte s counted. [place] This is equivalent to less than 2.5 mL red blood cells in CAMPUS LABS maternal circulation. Specimen Anatomical Collection Method Collection Time Receive d Time (Source) Location / / Volume Laterality 04/10/2011 1:07 AM 1 3:50 REGISTERED NURSE AM REGISTERED NURSE Selena Nazario MD LAB - BLOOD ORDERABLES Performing Organization Address City/[facility]/ZIP Code Phon e Number [address] [address] [facility] LABS Hemoglobin A1c (04/10/2011 1:07 AM REGISTERED NURSE) P athologist Signature Hemoglobin A1C 5.3 4.3 - 6.0 [facility] LAB Specimen Anatomical Collection Method Collection Time Receive d Time (Source) Location / / Volume Laterality Blood specimen 04/10/2011 1:07 AM 011 3:33 (specimen) REGISTERED NURSE AM REGISTERED NURSE Selena Nazario MD LAB - BLOOD ORDERABLES Performing Organization Address City/[facility]/ZIP Code Phon e Number [facility] [address], [place] [address] [facility] LAB hemoglobin stain Kleihauer (04/10/2011 1:07 AM REGISTERED NURSE) [facility] gist Method Time Signature Kleihauer-Bet See Hemoglobin Result GRANT ke Rhogam not required [facility] Patient Rh positive HOSPITAL LAB Specimen Anatomical Collection Method Collection Time Receive d Time (Source) Location / / Volume Laterality Blood specimen 04/10/2011 1:07 AM 011 3:45 (specimen) REGISTERED NURSE AM REGISTERED NURSE Selena Nazario MD LAB - BLOOD BANK TEST ORDER Performing Organization Address City/State/ZIP Code Phon e Number [facility] [address] [place], [place] [address] [facility] LAB Anti treponema EIA (04/10/2011 1:07 AM REGISTERED NURSE) Analysis Performed At Patho logist Time Signature Treponema Negative NEG [facility] pallidum [facility] Specimen Anatomical Collection Method Collection Time Receive d Time (Source) Location / / Volume Laterality Blood specimen 04/10/2011 1:07 AM 011 1:12 (specimen) REGISTERED NURSE AM REGISTERED NURSE Selena Nazario MD LAB - BLOOD ORDERABLES Performing Organization Address City/State/ZIP Code Phon e Number [facility] [address] [place] [address] [facility] HIV 1 and 2 Antibody (04/10/2011 1:07 AM REGISTERED NURSE) Analysis Performed At Patho logist Time Signature HIV 1&2 Negative NEG [facility] Antibody [facility] [place] Specimen Anatomical Collection Method Collection Time Receive d Time (Source) Location / / Volume Laterality Blood specimen 04/10/2011 1:07 AM 011 1:12 (specimen) REGISTERED NURSE AM REGISTERED NURSE Selena Nazario MD LAB - BLOOD ORDERABLES Performing Organization Address City/State/ZIP Code Phon e Number [facility] [address] [place] [address] [facility] [place] [facility] Hepatitis B surface antigen (04/10/2011 1:07 AM REGISTERED NURSE) Analysis Performed At Patho logist Time Signature Hep B Surface Negative NEG [facility] Agn [facility] [place] Specimen Anatomical Collection Method Collection Time Receive d Time (Source) Location / / Volume Laterality Blood specimen 04/10/2011 1:07 AM 011 1:12 (specimen) REGISTERED NURSE AM REGISTERED NURSE Selena Nazario MD LAB - BLOOD ORDERABLES Performing Organization Address City/State/ZIP Code Phon e Number [facility] [address] [place], [place] [id number] [place] [address] LABS Rubella antibody IgG (04/10/2011 1:07 AM REGISTERED NURSE) P athologist Signature Rubella MAN[place]O 61 IU/mL [facility] LABS Comment: Interpretation: Positive, Immun e Specimen Anatomical Collection Method Collection Time Receive d Time (Source) Location / / Volume Laterality Blood specimen 04/10/2011 1:07 AM 011 1:12 (specimen) REGISTERED NURSE AM REGISTERED NURSE Selena Nazario MD LAB - BLOOD ORDERABLES Performing Organization Address City/State/ZIP Code Phon e Number [address] [address] [facility] LABS ABO/Rh type and screen (04/10/2011 1:07 AM REGISTERED NURSE) [facility] Method Time Signature ABO O [facility] RH(D) Pos [facility] Antibody Neg [facility] Screen [facility] Specimen 04/13/2011 GRANT Expires [facility] Blood Bank Patient ID GRANT Comment verified by two [facility] individuals at HOSPITAL LAB time of collection Specimen Anatomical Collection Method Collection Time Receive d Time (Source) Location / / Volume Laterality Blood specimen 04/10/2011 1:07 AM 011 1:12 (specimen) REGISTERED NURSE AM REGISTERED NURSE Selena Nazario MD LAB - BLOOD BANK TEST ORDER Performing Organization Address City/[facility]/ZIP Code Phon e Number [place] [address], [place] [address] [facility] LAB Drug abuse scrn 7 UR (/) (RH, SH, UR) (04/10/2011 12:45 AM REGISTERED NURSE) Component Value Ref Test Analysis Performed At [facility] Range Method Time Signature Amphetamine Qual Negative NEG [facility] Urine Cutoff for a negative amphetamine is 500 ng/mL or less. [facility] Cannabinoids Negative NEG [facility] Qual Urine Cutoff for a negative cannabinoid is 50 ng/mL or less. [facility] Cocaine Qual Negative NEG [facility] Urine Cutoff for a negative cocaine is 300 ng/mL or less. [facility] Opiates Negative NEG [facility] Qualitative Cutoff for a negative opiate is 300 ng/mL or less. [facility] LAB Pcp Qual Urine Negative NEG [facility] Cutoff for a negative PCP is 25 ng/mL or less. [facility] Specimen Anatomical Collection Method Collection Time Receive d Time (Source) Location / / Volume Laterality Urine specimen URINE SPECIMEN 04/10/2011 12:45 011 3:28 (specimen) OBTAINED BY CLEAN AM REGISTERED NURSE AM REGISTERED NURSE CATCH PROCEDURE / Unknown Selena Nazario MD LAB - URINE ORDERABLES Performing Organization Address City/State/ZIP Code Phon e Number [facility] [address] [place], [place] [address] [facility] Surgical pathology exam (04/10/2011 12:00 AM REGISTERED NURSE) Component Value Ref Test Analysis Performed At [facility] Sensser Range Method Time Signature Copath Patient Name: TALYA NUNEZATH Report MR#: [id number] Specimen #: [id number] Collected: 04/10/2011 Received: 04/10/2011 Reported: 04/12/2011 15:31 Ordering Phy(s): SELENA NAZARIO SPECIMEN(S): A: Placenta B: Gross only, portion of placenta for chromosomes FINAL DIAGNOSIS: A. ??Placenta - 1. ?Second trimester, immature placenta. 2. ? Acute chorioamnionitis associated with chorionic ve ssel vasculitis. 3. ? Villous edema. 4. ? Chorionic plate with hemosiderin-laden macrophages, consistent with previous bleeding. 5. ? membranes with acute chorioamnionitis; no gadiel dence of decidual vasculopathy. 6. ? Three vessel umbilical cord with acute funisitis. B. ??Portion of placenta for chromosome study - 1. ?Gross examination and description only. 2. ? See separate report for cytogenetic analysis. Electronically signed out by: Tyron Bolaños M.D. CLINICAL HISTORY: 1, Para 0-1-0-0. ??Gestational age 22.7 weeks. ??Pre -term delivery with subsequent demise. ??Chromosome studies have been requested. GROSS: A. ??Received in formalin and labeled placenta, consists o f a cannon placenta. ??The 11 cm long and 1 cm wide triple-blood vessel umbilical cord is remarkable for a false knot. ??The pink-platt membrane s demonstrate patchy areas of thickening, essentially 100% marginal insert ion, and nearest point of rupture/opening at the edge of the placenta l disk. ??The membranes have a slightly yellow-cream discoloration focally , suggestive of meconium staining. ??The 174 gm, 13.5 x [address] disk demonstrates an eccentric 3 x 2 cm defect, consistent with s ampling for chromosome studies. ??The surface is essentially unrem arkable. ??The maternal surface demonstrates intact cotyledons with few adh erent blood clots peripherally. ??Serial sections reveal no gross eviden ce of retroplacental hemorrhage or other abnormalities. ??RS, four cassettes. B. ??Received in saline and labeled placental piece for chr omosome study consists of a single 4.5 x 3 x 1 cm portion of grossl y unremarkable placental disk. ??The specimen is representatiannalise verma submitted for cytogenetic studies in RPMI medium. ??No slides are made for microscopic examination. ??SA/kd MICROSCOPIC: A. ??Sections show chorionic plate denuded of amnion. ??The chorionic plate is infiltrated by neutrophils diagnostic of acute chorioamnionitis, as well as hemosiderin-laden macrophages c onsistent with previous bleeding. ??The stem blood vessels appea r patent. The terminal chorionic villi are large and immature. ??Villo us edema is present. ??There is no evidence of thrombotic vasculop athy or chronic villitis. ??The basal lamina shows areas of hemorrha ge, as well as an area of acute inflammation. ??Subchorionic fibrin depo sits are also noted. ??Chorionic vessel vasculitis is also present in morteza tional sections of placental disk. ??The membranes show areas of degeneration and infiltration by neutrophils. ??The amnion i s denuded. Pigment-laden macrophages are present consistent with meconi um staining. There is no evidence of decidual vasculopathy. ??The umbili zohaib cord shows three blood vessels and allantoic duct remnant. ??The umbilical vein and adjacent Daviess's jelly are infiltrated by neutrop hils diagnostic of acute funisitis. ??There is no evidence of vas cular thrombosis. B. ??No microscopic sections were made. ??See separate repor t for cytogenetic analysis. MGP/kd DT/11 TESTING LAB LOCATION: [facility] [address] [place], [place] ??[phone] COLLECTION SITE: Client: [facility] Location: RHOB (R) Specimen (Source) Anatomical Collection Method Collection Time Re ceived Time Location / / Volume Laterality 04/10/2011 04/10/2011 8:09 AM REGISTERED NURSE Selena CLARK - PHYLICIA RASMUSSEN Performing Organization Address City/State/ZIP Code Phon e Number COPATH documented in this encounter Visit Diagnoses Diagnosis Vaginal delivery Normal delivery labor second trimester with pret erm delivery second trimester Early onset of delivery, delivered, with or without mention of antepartum condition documented in this encounter Administered Medications Inactive Administered Medications - up to 3 most recent administrations Medication Order MAR Action Action Date Dose Rate Site acetaminophen (TYLENOL) tablet 650 Given 04/10/2011 4:37 AM REGISTERED NURSE 325 mg mg 650 mg, Oral, EVERY 4 HOURS PRN, mild pain, fever greater than 102??F, Starting on Fri04/10/11 at 0228 oxytocin (PITOCIN) 10 UNIT/ML injection Given 04/10/2011 1:50 AM REGISTERED NURSE Units Starting on Fri04/10/11 at 0133, For 1 dose, PARISA SHANNON: Cabinet Override Dispose as HW oxytocin (PITOCIN) 20 units in New Bag 04/10/2011 1:50 AM REGISTERED NURSE 125 mL/hr 125 mL/hr 0.9% NaCl 1000 mL 125 mL/hr, Intravenous, CONTINUOUS, Starting on Fri04/10/11 at 0230, Begin after delivery of placenta; IV to continue until patient stable; Discontinue or saline lock per nurse discretion. New Bag 04/10/2011 1:45 AM REGISTERED NURSE 125 mL/hr 125 mL/hr oxytocin 20 units in 0.9% NaCl (PITOCIN) 20 Units/1000 mL infusion Starting on Fri04/10/11 at 0133, For 1 dose, PARISA SHANNON: Cabinet Override documented in this encounter Active and Recently Administered Medications Times are shown in REGISTERED NURSE. Continuous Medication Order 04/08/2011 04/09/2011 04/10/2011 oxytocin (PITOCIN) 20 units in 0.9% NaCl 1000 mL (CANCELED) 0145 (New Bag - Provider: Imani Hagan RN - Comment: adminter after placent adefrancine)0150 (New Bag - Provider: Imani Hagan RN - Comment: patient condition & orders were not in computer) 125 mL/hr, Intravenous, at 125 mL/hr, CO NTINUOUS, Starting Fri04/10/11 at 0230, Begin after delivery of placenta; IV to continue until patient stable; Discontinue or saline lock per nurse discretion. PRN Medication Order 04/08/2011 04/09/2011 04/10/2011 acetaminophen (TYLENOL) tablet 650 mg (CANCELED) 0437 (Given - Provider: Imani Hagan RN)0445 (Not Given - Provider: Imani Hagan RN - Reason: Other - Comment: given at 0437) 650 mg, Oral, EVERY 4 HOURS PRN, mild pa in, fever greater than 102??F, Starting Fri04/10/11 at 0228 ibuprofen (ADVIL,MOTRIN) tablet 400-800 mg 400-800 mg, Oral, EVERY 6 HOURS PRN, oth er, cramping, Starting Fri04/10/11 at 0228, Max dose 3200 mg/day. No Frequency Medication Order 04/08/2011 04/09/2011 04/10/2011 oxytocin (PITOCIN) 10 UNIT/ML injection (COMPLETED) 0150 (Given - Provider: Imani Hagan RN - Comment: added in the bag per MD request) Starting on Fri04/10/11 at 0133, For 1 dose, PARISA SHANNON: Cabinet Override Dispose as HW documented in this encounter
--- OUTSIDE RECORDS SUMMARY | 2022-04-03 14:00 | XMS_ITS | Clinical Summary ---
:1990 Author Organization [facility] [place] [address] Care Team Providers Name Role Phone Feroz Shook MD Unavailable Unavailable Allergies No known active allergies Medications Medication Sig Dispensed Refills Start Date End Date Status norethindrone, Take 1 tablet by 28 tablet 0 10/05/2015 Active Contraceptive, (EDEN) mouth once 0.35 mg daily. tabletIndications: Encounter for surveillance of contraceptives OCELLA 3-0.03 mg TAKE 1 TABLET BY 84 tablet 0 11/19/2016 Active tabletIndications: Well MOUTH ONCE female exam with routine DAILY. gynecological exam Active Problems Problem Noted Date contractions 12/16/2013 Yeboah cerclage present 09/03/2013 Overview: SINGLE SUTURE #2 ETHILON Cervical cerclage suture present 07/30/2013 History of delivery, currently 2013 Supervision of other normal 07/20/2013 Overview: History of 25 week loss Cervical incompetence History of labor with de livery at 36 weeks. Declines genetic testing. Cerclage placed July 30. [facility]. consult 06/21/2013 Overview: History and physical 07/27/13 w/ Dr. Alvarez er... hgb to be drawn that day as well at [facility] CHECKLIST FOR SCHEDULING PROCEDURES: Procedure: cerclage Hospital: Day Surgery Unit: [facility] Surgery Date & Time of procedure: 3/14/14 @ 0730 Lee Score if induction: n/a Pertinent information: incompetent surge ry Gestational age on procedure date? 13 3/ 7 weeks MD doing procedure:Dr. Rush Date scheduled: 06/24/13 Scheduling MD & RN: JAMIL/WOODROW MD notified via [employer] inbox? yes On [facility] calendar? yes Amnio needed?n/a Amnio scheduled? Does NICU need notification?n/a NICU notification done: n/a PPTL permit signed? n/a Patient notified of procedure date? yes Written admission instructions given to patient? yes History and physical 07/27/13 w/ Dr. Alvarez er... hgb to be drawn that day as well at [facility] UTD Referred-Previous [facility] patient No current records 01/31/12-Delivered at 36 weeks. History of Short[facility] at 23 weeks [facility]previous [facility] patient 2010-Delivered at 22 weeks. Delivery rec ord scanned under Discharge Summary 07/29/11 Cervical incompetence affecting management of pregnanc y, antepartum 02/14/2012 Resolved Problems Problem Noted Date Resolved Date delivery at 36 weeks 02/14/2012 07/27/2013 Vaginal delivery 01/31/2012 07/27/2013 Cervical incompetence affecting management of , 02/14/2012 antepartum Overview: Dynamic with 1.4 cm closed length, olamide stroud Very young maternal age 0611/05/2011 07/27/2013 History of premature delivery, currently 11/05/2011 02/14/2012 Overview: Prior 22 5/7 week delivery with loss. Ch orioamnionitis uterine contractions 11/05/2011 02/14/2012 High-risk 08/15/2011 06/21/2013 Overview: NEXT VISIT ALERT GBS negative, please inform at next visi t Needs Tdap as an adult-Patient would l guera to wait until next OB visit at 36 weeks. LAST GROWTH: 01/07/12 32w6d TESTING: testing not indicated at this time (JAMIL) PRIMARY DIAGNOSIS: History of PTL and Hi story of 22 5/7 weeks loss 03/2011 Admitted 11/05/11-12/04/11 Dynamic cervi x. Initially measured 1.2-1.7 cm long with funneling. Later appeared to be dilated 1-2 cm with no residual length. REFERRING PHYSICIAN: Dr. Shook SPECIALISTS: RESTAURANT FLOOR MANAGER: CARE COORDINATION: CONSULTS: PROCEDURES: MEDS: Betamethasone completed 11/04 and 11/05 Nifedipine po and Progesterone Vaginal S uppositories Vitamin D plans: Declined level Pertinent/Abnormal LABS: Hemoglobin-11.7 11/27/11 Blood type: O Positive GBS neg 01/24/12 NURSING: Last TDAP: 10/29/2004 Non BMI 19 Optimal wt gain 25-3 5# Plan for Gestational Diabetes screening: PASSED 11-27-11 =68 Not planning Tubal Ligation GENETICS: Date: Declined testing with primary MD CHANG PLAN OF CARE: 01/24/12 EN Return to clinic in 1 week for OB check Tdap at next visit GBS collected Okay to increase activity since not cont racting at all 12/26/11 LS 1. RTO as scheduled on 01/06, then two we eks after. Weekly OB check after 34 weeks 2. Continue bedrest at home, modify at 3 4 weeks, d/c bedrest at 36 weeks 3. Medications: continue vitami n with folic acid, Nifedipine, vaginal progesterone until 34 weeks' gestation 4. D/C OB homecare 5. Growth scan at next visit as schedule d 6.Pt offered transfer and delivery with primary provider after 34 weeks. Prefers to stay with [facility] due to length of time in our care. 7. testing not indicated at this ti pa Family History Medical History Relation Name Comments Good Health Brother 2 Diabetes Father Hyperlipidemia Father Cancer-colon Maternal Grandfather Diabetes Maternal Grandfather Hypertension Maternal Grandfather Hypertension Maternal Grandmother Good Health Mother Diabetes Paternal Grandfather Heart Disease Paternal Grandfather Hypertension Paternal Grandfather Heart Disease Paternal Grandmother Hypertension Paternal Grandmother Good Health Sister 2 Relation Name Status Comments Brother 1 Alive Brother 2 Father Maternal Grandfather Alive Maternal Grandmother Alive Mother Alive Paternal Grandfather Paternal Grandmother Alive Sister 1 Alive x3 Sister 2 Son Alive Social History Tobacco Use Types Packs/Day Years Used Date Never Smoker Smokeless Tobacco: Never Used Alcohol Use Standard Drinks/Week Comments No 0 (1 standard drink = 0.6 oz pure alcoho l) Sex Assigned at Date Recorded Not on file Obstetrics History Para Term AB IAB SAB Ectopic Multiple Living Live Births 3 3 1 2 0 0 0 0 0 2 3 Date Outcome GA Total Labor/2nd/3rd Weight Sex Delivery Anes PTL Linda A 1 A5 Name Clin Labor 04/10 22w 0.47 kg M Vag N Neon 1 1 5d (1 lb atal por t 0.6 oz) Sheron se Delivery Location: [facility] Comments: baby at ~ 45 minute s after , autopsy showed normal male karyotype 01/31/2012 36w2d 5h 30m/ 2.72 kg M Vag-Spont Epidural Y Living 9 9 [place] (6 lb) Delivery Location: [facility] 01/26/2014 Term 39w1d 3.63 kg (8 lb) M Vag Living 8 9 [place] Delivery Location: [facility] Last Filed Vital Signs Vital Sign Reading Time Taken Comments Blood Pressure 104/68 10/12/2015 9:35 AM CDT Pulse 52 10/12/2015 9:35 AM CDT Temperature 36.7 ??C (98.1 ??F) 11/16/2014 10:18 AM CDT Respiratory Rate 16 01/31/2014 8:00 AM CDT Oxygen Saturation 97% 01/28/2014 8:00 AM CDT Inhaled Oxygen Concentration - - Weight 58.9 kg (129 lb 12.8 oz) 10/12/2015 9:35 AM CDT Height 174.6 cm (5' 8.75) 10/12/2015 9:35 AM CDT Body Mass Index 19.31 10/12/2015 9:35 AM CDT Plan of Treatment Health Maintenance Due Date Last Done Comments COVID-19 vaccine series (#1) 06/28/1993 Tdap 12/27/2003 Hepatitis C screening for age 18-79 2010 Tetanus booster 2012 BMI (ht and wt on same day) for age 18+ 10/11/2016 10/12/19 16 Depression screening for age 12+ 10/11/2016 10/12/2015 Pap test for age 21-65 08/03/2021 08/03/2018, 03/16/2014 Influenza for age 9-49 01/17/2022 Results Not on filefrom Last 3 Months Insurance Payer Benefit Plan / Subscriber ID Effective Dates Phone Addre ss Type Group [employer]UE [employer] OF [id number] 2015-Present [address] [address] [place] [address] Advance Directives Latest Code Status on File Code Status Date Activated Date Inactivated Comments Full Code 01/26/2014 11:24 PM 01/28/2014 1:40 PM Full Code 01/26/2014 6:28 PM 01/26/2014 11:24 PM Full Code 01/26/2014 6:13 PM 01/26/2014 6:28 PM Full Code 01/11/2014 2:01 PM 01/12/2014 8:12 PM Full Code 12/16/2013 12:08 AM 12/16/2013 6:54 AM Care Teams Certified Mortician Relationship Specialty Start Date End Date Feroz Shook MD LIQUOR CLERK Obstetrics and Gynecology 07/18/11
[2022-04-03 17:29] LABS: Albumin* 4.6 g/dL (3.3-5.0)
[2022-04-03 17:32] LABS: Alanine Aminotransferase* 616 U/L (4-35); Alkaline Phosphatase* 144 U/L (40-150); Aspartate Amino Transferase* 318 U/L (12-35); Bilirubin Direct* 0.1 mg/dL (0.0-0.5); Bilirubin Total* 2.5 mg/dL (0.1-1.5); Total Protein* 6.9 g/dL (6.0-8.3)
== END 2022-04-03 13:41 | disposition home or self-care (01) ==
LOC: NFLDREF 13:58
PROVIDERS: Visit Provider Surgery
DX: K80.20 Calculus of gallbladder without cholecystitis without obstruction (principal)
CPT/HCPCS: 80076

== ENCOUNTER 2022-04-05 15:34 | Outpatient (CLI) | payer MEDICARE, SELFPAY ==
[2022-04-05 09:50] LABS: Albumin* 4.7 g/dL (3.3-5.0)
[2022-04-05 09:53] LABS: Aspartate Amino Transferase* 55 U/L (12-35); Bilirubin Total* 1.2 mg/dL (0.1-1.5); Total Protein* 7.1 g/dL (6.0-8.3)
[2022-04-05 09:54] LABS: Alanine Aminotransferase* 312 U/L (4-35); Alkaline Phosphatase* 116 U/L (40-150)
[2022-04-05 10:44] LABS: Hepatitis C Virus Antibody* Negative (Negative)
[2022-04-06 18:30] LABS: Hepatitis B Core Antibody, IgM Negative (Negative)
[2022-04-06 18:31] LABS: Hepatitis A Antibodies, Total Positive (Negative); Hepatitis B Core Antibodies Negative (Negative)
[2022-04-06 19:26] LABS: Haptoglobin 118 mg/dL (30-200)
[2022-04-07 17:39] LABS: Antinuclear Antibody HEp-2,IgG <1:80 (<1:80)
== END 2022-04-05 15:35 | disposition home or self-care (01) ==
PROVIDERS: Visit Provider Surgery
DX: R10.9 Unspecified abdominal pain (principal)
CPT/HCPCS: 80076; 83010; 86038; 86704; 86705; 86708; 86803